=== PATIENT | female | born 1955 | race Two or more races ===

== ENCOUNTER → 2017-06-01 | Outpatient (CLI) | payer BC ==
--- NOTE | 2017-06-01 09:42 | WOMENS IMAGING REPORT ---
EXAM DESCRIPTION: U/S ABDOMEN LIMITED COMPLETED DATE/TIME: 06/01/2017 8:33 am REASON FOR STUDY: R10.13 R10.13 EPIGASTRIC PAIN COMPARISON: None. TECHNIQUE: Dynamic and static grayscale images acquired of the abdomen and recorded on PACS. Additio nal selected color Doppler and spectral images recorded. LIMITATIONS: None. FINDINGS: PANCREAS: No masses. Visualized pancreatic duct normal caliber. LIVER: No focal masses. Fatty infiltration. LIVER VASCULATURE: Normal directional flow of the main portal vein and hepatic veins. GALLBLADDER: Gallstone. No gallbladder wall thickening. ULTRASOUND-DETECTED ANDRE'S SIGN: Negative. INTRAHEPATIC DUCTS AND COMMON DUCT: CBD and intrahepatic ducts normal caliber. No filling defects. INFERIOR VENA CAVA: Normal flow. AORTA: No aneurysm. RIGHT KIDNEY: Normal size. Normal echogenicity. No solid or suspicious masses. No hydronephrosis. No calcifications. PERITONEAL AND RIGHT PLEURAL SPACE: No ascites or effusions. OTHER: No other significant findings. IMPRESSION: Fatty liver. Gallstones. TECHNICAL DOCUMENTATION: JOB ID: [id number] [employer]- All Rights Reserved
== END ==
LOC: WI 07:42
PROVIDERS: ATTEND Internal Medicine Gastroenterology
DX: R10.13 Epigastric pain (principal); K76.0 Fatty (change of) liver, not elsewhere classified
CPT/HCPCS: 76705

== ENCOUNTER 2017-06-08 14:06 | Inpatient (IN) | payer BC ==
[2017-06-08] MEDS ORDERED: NORMAL SALINE 1000 ML 1,000 ML IV PRN ×2 (15:04→16:40)
[2017-06-08] MEDS ORDERED: ONDANSETRON HCL INJ/PF 4 MG/2 ML SDV IV PRN (15:04)
[2017-06-08] MEDS ORDERED: ACETAMINOPHEN 325 MG TABLET PO PRN (15:04)
[2017-06-08] MEDS ORDERED: DEXTROSE 40% GEL 15 GM TUBE PO PRN ×2 (15:08)
[2017-06-08] MEDS ORDERED: GLUCAGON,HUMAN RECOMB 1 MG INJ IM PRN (15:08)
[2017-06-08] MEDS ORDERED: DEXTROSE 50%-WATER 25 GM/50 ML DISP.SYRIN IV PRN ×2 (15:08)
[2017-06-08 15:45] LABS: ABSOLUTE LYMPHOCYTES (AUTO) 0.9 10^3/uL (0.5-4.7); ABSOLUTE MONOCYTES (AUTO) 0.8 10^3/uL (0.1-1.4); ABSOLUTE NEUT (AUTO) 13.5 10^3/uL (1.7-8.2); BASOPHILS % (AUTO) 0.2 % (0-2); HEMATOCRIT 34.7 % (36.0-47.0); HEMOGLOBIN 11.7 g/dL (12.0-15.5); HGB HCT DIFFERENCE 0.4; LYMPHOCYTES % (AUTO) 6.2 % (13-45); MEAN CORPUSCULAR HEMOGLOBIN 29.8 pg (27.0-33.4); MEAN CORPUSCULAR HGB CONC 33.8 g/dL (32.0-36.0); MEAN CORPUSCULAR VOLUME 88 fl (80-97); RED BLOOD COUNT 3.93 10^6/uL (3.72-5.28); RED CELL DISTRIBUTION WIDTH 12.7 % (11.5-14.0); SEGMENTED NEUTROPHILS % (AUTO) 88.6 % (42-78); WHITE BLOOD COUNT 15.3 10^3/uL (4.0-10.5)
[2017-06-08 15:51] LABS: PROTHROMBIN TIME 13.5 SEC (11.4-15.4)
[2017-06-08 16:04] LABS: ALANINE AMINOTRANSFERASE 24 U/L (9-52); ALBUMIN 4.7 g/dL (3.5-5.0); ALKALINE PHOSPHATASE 117 U/L (38-126); ANION GAP 17 (5-19); ASPARTATE AMINO TRANSFERASE 19 U/L (14-36); BILIRUBIN,DIRECT 0.2 mg/dL (0.0-0.4); BILIRUBIN,TOTAL 0.8 mg/dL (0.2-1.3); BLOOD UREA NITROGEN 19 mg/dL (7-20); CALCIUM 9.2 mg/dL (8.4-10.2); CARBON DIOXIDE 26 mmol/L (22-30); CHLORIDE 91 mmol/L (98-107); GLUCOSE 286 mg/dL (75-110); POTASSIUM 4.5 mmol/L (3.6-5.0); SODIUM 133.6 mmol/L (137-145); TOTAL PROTEIN 8.3 g/dL (6.3-8.2)
[2017-06-08 16:13] LABS: MAGNESIUM 1.1 mg/dL (1.6-2.3)
--- NOTE | 2017-06-08 16:15 | RADIOLOGY REPORT (SQ) ---
EXAM DESCRIPTION: CHEST SINGLE VIEW COMPLETED DATE/TIME: 06/08/2017 4:03 pm REASON FOR STUDY: pre op COMPARISON: 01/28/2016 EXAM PARAMETERS: NUMBER OF VIEWS: One view. TECHNIQUE: Single frontal radiographic view of the chest acquired. RADIATION DOSE: NA LIMITATIONS: None. FINDINGS: LUNGS AND PLEURA: No opacities, masses or pneumothorax. No pleural effusion. MEDIASTINUM AND HILAR STRUCTURES: No masses. Contour normal. HEART AND VASCULAR STRUCTURES: Heart normal in size. Normal vasculature. BONES: No acute findings. HARDWARE: Sternotomy wires. OTHER: No other significant finding. IMPRESSION: NO ACUTE RADIOGRAPHIC FINDING IN THE CHEST. TECHNICAL DOCUMENTATION: JOB ID: [id number]
--- NOTE | 2017-06-08 16:52 | PDOC H&P ---
History of Present Illness Admission Date/PCP: 06/08/17 14:06 MAURISIO SAINZ MD Patient complains of: Nausea vomiting History of Present Illness: MEGAN ARELLANO is a 62 year old female This is a 62-year-old female with a history of the type 2 diabetes and a history of the hypertension and coronary artery disease came to the office because of the complaint of some nausea vomiting some abdominal discomfort since last night. Patient recently has see her Dr. Elliott and order the ultrasound of the abdomen with so some gallstone but no other acute finding and patient scheduled for the outpatients of the procedures. Patient's intractable nausea and vomiting and discussed with the Dr. Elliott and suggest probably most likely coming from the gallstones and decided to admit in the hospital for further surgical evaluations. Patient's denied any chest pain denied any shortness of the breath. Past Medical History Cardiac Medical History: Reports: Coronary Artery Disease, Myocardial Infarction , Hyperlipidema, Hypertension Pulmonary Medical History: Denies: Asthma Neurological Medical History: Denies: Seizures Endocrine Medical History: Reports: Diabetes Mellitus Type 2 GI Medical History: Reports: Gastroesophageal Reflux Disease Denies: Hepatitis, Hiatal Hernia Musculoskeltal Medical History: Reports: Arthritis Hematology: Denies: Anemia, Sickle Cell Disease Past Surgical History Past Surgical History: Reports: Coronary Artery Bypass Graft Denies: Amputation, Mastectomy, Pacemaker Social History Information Source: Patient Lives with: Family Smoking Status: Never Smoker Frequency of Alcohol Use: None Hx Recreational Drug Use: No Hx Prescription Drug Abuse: No Family History Family History: Reviewed & Not Pertinent Parental Family History Reviewed: Yes Children Family History Reviewed: Yes Sibling(s) Family History Reviewed.: Yes Medication/Allergy Home Medications: Aspirin [Ecotrin] 325 mg PO DAILY 06/08/17 Atenolol [Tenormin] 25 mg PO DAILY 06/08/17 Calcium Carbonate/Vitamin D3 [Caltrate 600 Plus D3 Tablet] 1 tab PO BID Cyanocobalamin (Vitamin B-12) [Vitamin B12] 2,500 mcg PO DAILY 06/08/17 Gluc Ca/Chondro Ca A/Vit C/Mn [Glucosamine 1,500 Complex Cap] 2 cap PO DAILY Insulin Glargine,Hum.rec.anlog [Lantus Solostar] 16 units SQ QPM 06/08/17 Insulin Lispro [Humalog Kwikpen U-100] 0 units SQ .PERSLIDINGSCALE 06/08/17 Lisinopril [Zestril] 10 mg PO DAILY 06/08/17 Metformin HCl [Glucophage XR 500 mg Tablet] 1,000 mg PO BID 06/08/17 Rosuvastatin Calcium [Crestor 5 mg Tablet] 5 mg PO DAILY 06/08/17 Vitamin B Complex [Super B Complex] 1 cap PO DAILY 06/08/17 Allergies/Adverse Reactions: codeine [Codeine] Adverse Reaction (Unknown, Verified 10/30/15 15:06) Nausea Review of Systems Constitutional: ABSENT: chills, fever(s), headache(s), weight gain, weight loss Eyes: ABSENT: visual disturbances Ears: ABSENT: hearing changes Cardiovascular: ABSENT: chest pain, dyspnea on exertion, edema, orthropnea, palpitations Respiratory: ABSENT: cough, hemoptysis Gastrointestinal: PRESENT: abdominal pain, bloating, nausea, vomiting Genitourinary: ABSENT: dysuria, hematuria Musculoskeletal: ABSENT: joint swelling Integumentary: ABSENT: rash, wounds Neurological: ABSENT: abnormal gait, abnormal speech, confusion, dizziness, focal weakness, syncope Psychiatric: ABSENT: anxiety, depression, homidical ideation, suicidal ideation Endocrine: ABSENT: cold intolerance, heat intolerance, menstrual abnormalities, polydipsia, polyuria Hematologic/Lymphatic: ABSENT: easy bleeding, easy bruising, lymphadenopathy Physical Exam Vital Signs: Temp Pulse Resp BP Pulse Ox 99.0 F 84 16 140/56 H 100 06/08/17 14:29 06/08/17 14:29 06/08/17 14:29 06/08/17 14:29 06/08/17 14:29 Intake & Output 06/07/17 06/08/17 06/09/17 06:59 06:59 06:59 Weight 74.9 kg General appearance: PRESENT: no acute distress, well-developed, well-nourished Head exam: PRESENT: atraumatic, normocephalic Eye exam: PRESENT: conjunctiva pink, EOMI, PERRLA. ABSENT: scleral icterus Ear exam: PRESENT: normal external ear exam Mouth exam: PRESENT: moist, tongue midline Neck exam: PRESENT: full ROM. ABSENT: carotid bruit, JVD, lymphadenopathy, thyromegaly Respiratory exam: PRESENT: clear to auscultation jose Cardiovascular exam: PRESENT: RRR. ABSENT: diastolic murmur, rubs, systolic murmur Pulses: PRESENT: normal dorsalis pedis pul, +2 pedal pulses bilateral Vascular exam: PRESENT: normal capillary refill GI/Abdominal exam: PRESENT: normal bowel sounds, soft, tenderness. ABSENT: distended, guarding, mass, organolmegaly, rebound Rectal exam: PRESENT: deferred Neurological exam: PRESENT: alert, awake, oriented to person, oriented to place , oriented to time, oriented to situation, CN II-XII grossly intact. ABSENT: motor sensory deficit Psychiatric exam: PRESENT: appropriate affect, normal mood. ABSENT: homicidal ideation, suicidal ideation Skin exam: PRESENT: dry, intact, warm. ABSENT: cyanosis, rash Assessment & Plan - Diagnosis (1) Nausea & vomiting Qualifiers: Vomiting Intractability: intractable Is this a current diagnosis for this admission?: YesPlan: Possible underlying gallstone versus gastritis will admit the patient in the hospital IV fluid (2) Abdominal pain Qualifiers: Abdominal location: generalized Qualified Code(s): R10.84 - Generalized abdominal pain Is this a current diagnosis for this admission?: YesPlan: We consulted general surgery for further evaluation about the gallstones (3) Gallstone Qualifiers: Cholecystitis presence: without cholecystitis Is this a current diagnosis for this admission?: YesPlan: Consult the general surgery (4) Hypertension Qualifiers: Hypertension type: essential hypertension Qualified Code(s): I10 - Essential (primary) hypertension Is this a current diagnosis for this admission?: YesPlan: Currently all stable (5) Hyperlipidemia Qualifiers: Hyperlipidemia type: unspecified Qualified Code(s): E78.5 - Hyperlipidemia, unspecified Is this a current diagnosis for this admission?: Yes (6) Type 2 diabetes mellitus Qualifiers: Diabetes mellitus complication status: with unspecified complications Is this a current diagnosis for this admission?: YesPlan: Continues to sliding scale and current medications (7) Coronary artery disease Qualifiers: Coronary Disease-Associated Artery/Lesion type: unspecified vessel or lesion type Is this a current diagnosis for this admission?: YesPlan: We will get the EKG and consult the cardiology for further evaluations for the cardiac clearance before the surgery - Time Time Spent: 30 to 50 Minutes Medications reviewed and adjusted accordingly: Yes Anticipated discharge: Home Within: Other - Inpatient Certification Medical Necessity: Need For IV Fluids, Need for Surgery Post Hospital Care: D/C [facility] Documentation - Plan Summary Plan Summary: Admit the patient in IMCU discussed with the patient and the family about the patient's current conditions and discussed with the coordinate care with the general surgery start iv rocephine and asper d/w surgery s/o ct abd/pelvis
[2017-06-08] MEDS ORDERED: CEFTRIAXONE 1 GM/D5W RTU 1 GM/50 ML RTUPB IV SCH (17:00)
[2017-06-08] MEDS ORDERED: ENOXAPARIN SODIUM INJ 40 MG/0.4 ML DISP.SYRIN SUBCUT ONE (17:00)
[2017-06-08] MEDS: CALCIUM CARBONATE 250 MG/VITAMIN D3 125 UNIT TABLET PO SCH (17:18)
[2017-06-08] MEDS: INSULIN LISPRO 100 UNIT/ML 3 ML VIAL SUBCUT PRN ×2 (17:49→22:30)
[2017-06-08] MEDS: MAGNESIUM SULFATE/D5W 100 ML IV SCH ×2 (17:50→21:05)
[2017-06-08] MEDS ORDERED: INSULIN GLARGINE,HUM.REC.ANLOG 300 UNIT/3 ML INSULN.PEN SUBCUT SCH (18:00)
[2017-06-08] MEDS ORDERED: (PENDING PHARMACY ID) (Calcium Carbonate/Vitamin D3 [Caltrate 600 Plus D3 Tablet] 1 TAB) PO SCH (18:00)
--- NOTE | 2017-06-08 19:25 | RADIOLOGY REPORT (SQ) ---
EXAM DESCRIPTION: U/S ABDOMEN COMPLETE W/O DOP COMPLETED DATE/TIME: 06/08/2017 6:53 pm REASON FOR STUDY: abd pain COMPARISON: None. TECHNIQUE: Dynamic and static grayscale images acquired of the abdomen and recorded on PACS. Additio nal selected color Doppler and spectral images recorded. LIMITATIONS: None. FINDINGS: PANCREAS: No masses. Visualized pancreatic duct normal caliber. LIVER: No masses. Echotexture normal. LIVER VASCULATURE: Normal blood flow is identified in portal vein. GALLBLADDER: No gallstones are identified. There is increased echogenicity in the dependent portion of the gallbladder which has the appearance of a combination of biliary sludge and small gallstones. There is some mild thickening of the gallbladder wall. No pericholecystic fluid. ULTRASOUND-DETECTED ANDRE'S SIGN: Negative. INTRAHEPATIC DUCTS AND COMMON DUCT: CBD and intrahepatic ducts normal caliber. No filling defects. INFERIOR VENA CAVA: Normal flow. AORTA: No aneurysm. RIGHT KIDNEY: 10.2 cm in length. Normal echogenicity. No solid or suspicious masses. No hydron ephrosis. No calcifications. LEFT KIDNEY: 10.5 cm in length. Normal echogenicity. No solid or suspicious masses. No hydrone phrosis. No calcifications. SPLEEN: Normal size. No solid masses. PERITONEAL AND PLEURAL SPACES: No ascites or effusions. OTHER: No other significant finding. IMPRESSION: Increased echogenicity in the dependent portion of the gallbladder which has the appeara nce of a combination of biliary sludge and small gallstones. There is some mild thickening of the ga llbladder wall. The possibility of cholecystitis should be considered. Other findings as noted dinorah ma TECHNICAL DOCUMENTATION: JOB ID: [id number] [employer]- All Rights Reserved
--- NOTE | 2017-06-08 20:35 | PDOC CONSULTATION ---
Consultation Consult Date: 06/08/17 History of Present Illness Admission Date/PCP: 06/08/17 14:06 MAURISIO SAINZ MD History of Present Illness: This is a 63-year-old patient who was admitted directly to the hospital today with epigastric and right upper quadrant pain associated with vomiting. Her symptoms started last night about 11 and she vomited multiple times during the night. The pain has also been constant though it is better currently. She has not vomited for more than 10 hours. She did have a few episodes of loose stools during the night but none today so far. She denies fever. On admission her white count was elevated at 15 and her ultrasound showed mild gallbladder wall thickening with gallstones and sludge in the dependent part of the gallbladder. There was no pericholecystic fluid. She had another ultrasound on 06/01/2017 that showed a gallstone. I saw her in the office about a week ago with dyspeptic symptoms and she was supposed to have an EGD in a few days. She is also due for colon cancer screening Past Medical History Cardiac Medical History: Reports: Coronary Artery Disease, Myocardial Infarction , Hyperlipidema, Hypertension Pulmonary Medical History: Denies: Asthma Neurological Medical History: Denies: Seizures Endocrine Medical History: Reports: Diabetes Mellitus Type 2 GI Medical History: Reports: Gastroesophageal Reflux Disease Denies: Hepatitis, Hiatal Hernia Musculoskeltal Medical History: Reports: Arthritis Hematology: Denies: Anemia, Sickle Cell Disease Past Surgical History Past Surgical History: Reports: Coronary Artery Bypass Graft Denies: Amputation, Mastectomy, Pacemaker Social History Lives with: Family Smoking Status: Never Smoker Frequency of Alcohol Use: None Hx Recreational Drug Use: No Hx Prescription Drug Abuse: No Family History Family History: Reviewed & Not Pertinent Parental Family History Reviewed: No Children Family History Reviewed: NA Sibling(s) Family History Reviewed.: NA Medication/Allergy Home Medications: Aspirin [Ecotrin] 325 mg PO DAILY 06/08/17 Atenolol [Tenormin] 25 mg PO DAILY 06/08/17 Calcium Carbonate/Vitamin D3 [Caltrate 600 Plus D3 Tablet] 1 tab PO BID Cyanocobalamin (Vitamin B-12) [Vitamin B12] 2,500 mcg PO DAILY 06/08/17 Gluc Ca/Chondro Ca A/Vit C/Mn [Glucosamine 1,500 Complex Cap] 2 cap PO DAILY Insulin Glargine,Hum.rec.anlog [Lantus Solostar] 16 units SQ QPM 06/08/17 Insulin Lispro [Humalog Kwikpen U-100] 0 units SQ .PERSLIDINGSCALE 06/08/17 Lisinopril [Zestril] 10 mg PO DAILY 06/08/17 Metformin HCl [Glucophage XR 500 mg Tablet] 1,000 mg PO BID 06/08/17 Rosuvastatin Calcium [Crestor 5 mg Tablet] 5 mg PO DAILY 06/08/17 Vitamin B Complex [Super B Complex] 1 cap PO DAILY 06/08/17 Allergies/Adverse Reactions: codeine [Codeine] Adverse Reaction (Unknown, Verified 10/30/15 15:06) Nausea Review of Systems All systems: reviewed and no additional remarkable complaints except as stated Physical Exam Vital Signs: Temp Pulse Resp BP Pulse Ox 100.0 F 84 16 129/46 H 99 06/08/17 19:20 06/08/17 19:20 06/08/17 19:20 06/08/17 19:20 06/08/17 19:20 Intake & Output 06/07/17 06/08/17 06/09/17 06:59 06:59 06:59 Weight 74.9 kg Exam: General: Patient is alert and looks well. HEENT: There is no pallor or jaundice. PERRLA. Oropharynx normal Respiratory: No chest deformity. No respiratory distress. Chest wall palpitation was unremarkable. Breath sounds were normal Cardiovascular: Heart sounds 1 and 2 normal with no murmurs. Abdominal: Not distended. There is tenderness in the right upper quadrant. Liver and spleen not palpable. No ascites demonstrated. Bowel sounds active. Rectal examination was deferred. Extremities: No edema Neurological: Alert and oriented x4. Grossly nonfocal. Normal speech Skin: No significant rash Psychological: Normal affect Results Laboratory Results: 06/08/17 15:26 06/08/17 15:26 06/08/17 06/08/17 15:26 15:26 WBC 15.3 H RBC 3.93 Hgb 11.7 L Hct 34.7 L MCV 88 MCH 29.8 MCHC 33.8 RDW 12.7 Plt Count 272 Seg Neutrophils % 88.6 H Lymphocytes % 6.2 L Monocytes % 5.0 Eosinophils % 0.0 Basophils % 0.2 Absolute Neutrophils 13.5 H Absolute Lymphocytes 0.9 Absolute Monocytes 0.8 Absolute Eosinophils 0.0 Absolute Basophils 0.0 Sodium 133.6 L Potassium 4.5 Chloride 91 L Carbon Dioxide 26 Anion Gap 17 BUN 19 Creatinine 0.60 Est GFR ( Amer) > 60 Est GFR (Non-Af Amer) > 60 Glucose 286 H Calcium 9.2 Magnesium 1.1 L* Total Bilirubin 0.8 AST 19 ALT 24 Alkaline Phosphatase 117 Total Protein 8.3 H Albumin 4.7 Lipase 20.0 L Impressions: Abdomen Ultrasound 06/08/17 00:00 IMPRESSION: Increased echogenicity in the dependent portion of the gallbladder which has the appearance of a combination of biliary sludge and small gallstones. There is some mild thickening of the gallbladder wall. The possibility of cholecystitis should be considered. Other findings as noted above Chest X-Ray 06/08/17 15:06 IMPRESSION: NO ACUTE RADIOGRAPHIC FINDING IN THE CHEST. Assessment & Plan - Diagnosis (1) Right upper quadrant pain Is this a current diagnosis for this admission?: YesPlan: She developed an acute onset right upper quadrant pain with vomiting and her ultrasound showed mild gallbladder wall thickening. I suspect this is cholecystitis but I did schedule her for an HIDA scan. She will be evaluated by the surgeon. She is on antibiotics (2) Abnormal abdominal ultrasound Is this a current diagnosis for this admission?: Yes (3) Gallstone Qualifiers: Cholecystitis presence: without cholecystitis Is this a current diagnosis for this admission?: Yes (4) Nausea & vomiting Qualifiers: Vomiting Intractability: intractable Is this a current diagnosis for this admission?: Yes
[2017-06-08] MEDS ORDERED: MAGNESIUM SULFATE/D5W 1 GM/100 ML RTUPB IV ONE (21:00)
[2017-06-08] MEDS: PANTOPRAZOLE SODIUM 40 MG VIAL IV SCH (22:30)
[2017-06-08] MEDS: ATORVASTATIN CALCIUM 10 MG TABLET PO SCH (22:30)
[2017-06-09 06:40] LABS: ABSOLUTE BASOPHILS # (AUTO) 0.1 10^3/uL (0.0-0.2); ABSOLUTE LYMPHOCYTES (AUTO) 1.2 10^3/uL (0.5-4.7); ABSOLUTE MONOCYTES (AUTO) 0.8 10^3/uL (0.1-1.4); ABSOLUTE NEUT (AUTO) 13.9 10^3/uL (1.7-8.2); BASOPHILS % (AUTO) 0.3 % (0-2); HEMATOCRIT 31.6 % (36.0-47.0); HEMOGLOBIN 10.8 g/dL (12.0-15.5); HGB HCT DIFFERENCE 0.8; LYMPHOCYTES % (AUTO) 7.4 % (13-45); MEAN CORPUSCULAR HEMOGLOBIN 30.4 pg (27.0-33.4); MEAN CORPUSCULAR HGB CONC 34.1 g/dL (32.0-36.0); MEAN CORPUSCULAR VOLUME 89 fl (80-97); MONOCYTES % (AUTO) 5.3 % (3-13); RED BLOOD COUNT 3.53 10^6/uL (3.72-5.28)
[2017-06-09 07:04] LABS: ALANINE AMINOTRANSFERASE 24 U/L (9-52); ALBUMIN 3.7 g/dL (3.5-5.0); ALKALINE PHOSPHATASE 100 U/L (38-126); ANION GAP 13 (5-19); ASPARTATE AMINO TRANSFERASE 14 U/L (14-36); BILIRUBIN,DIRECT 0.4 mg/dL (0.0-0.4); BILIRUBIN,TOTAL 0.8 mg/dL (0.2-1.3); BLOOD UREA NITROGEN 14 mg/dL (7-20); CALCIUM 8.3 mg/dL (8.4-10.2); CARBON DIOXIDE 24 mmol/L (22-30); CHLORIDE 97 mmol/L (98-107); CREATININE RESULT 0.58 mg/dL (0.52-1.25); GLUCOSE 248 mg/dL (75-110); MAGNESIUM 1.7 mg/dL (1.6-2.3); POTASSIUM 4.2 mmol/L (3.6-5.0); SODIUM 134.2 mmol/L (137-145); TOTAL PROTEIN 6.6 g/dL (6.3-8.2)
--- NOTE | 2017-06-09 07:33 | PDOC CONSULTATION ---
Consultation Consult Date: 06/09/17 Attending physician:: FRANDY HANNA Consult reason:: Gallbladder disease History of Present Illness Admission Date/PCP: 06/08/17 14:06 MAURISIO HANNA MD History of Present Illness: This is a 63-year-old patient who was admitted directly to the hospital today with epigastric and right upper quadrant pain associated with vomiting. Her symptoms started last night about 11 and she vomited multiple times during the night. The pain has also been constant though it is better currently. She has not vomited for more than 10 hours. She did have a few episodes of loose stools during the night but none today so far. She denies fever. On admission her white count was elevated at 15 and her ultrasound showed mild gallbladder wall thickening with gallstones and sludge in the dependent part of the gallbladder. There was no pericholecystic fluid. She had another ultrasound on 06/01/2017 that showed a gallstone. I saw her in the office about a week ago with dyspeptic symptoms and she was supposed to have an EGD in a few days. She is also due for colon cancer screening Surgeon's addendum: Dr. Menjivar received phone call from Dr. Pink 2 days ago reporting his 's symptoms as described above. Original plans were for the patient to come in to my office later this week, however she was evaluated by Dr. Hanna yesterday and felt to require urgent hospitalization. Since that time the patient's repetitive episodes of vomiting have diminished. She was admitted to the hospital overnight, found to have right upper quadrant tenderness, leukocytosis. Originally CT scan was ordered but that was canceled. A HIDA scan was ordered for today. Patient's last bowel movement was yesterday, normal. According to the patient for the last several months she has been having postprandial right upper quadrant pain occasionally radiating to her back with some nausea but no vomiting. She describes the pain is mild. However the last week the postprandial symptoms have intensified. Gallbladder ultrasound yesterday showed gallstones and sludge. Past Medical History Cardiac Medical History: Reports: Coronary Artery Disease, Myocardial Infarction , Hyperlipidema, Hypertension Pulmonary Medical History: Denies: Asthma Neurological Medical History: Denies: Seizures Endocrine Medical History: Reports: Diabetes Mellitus Type 2 GI Medical History: Reports: Gastroesophageal Reflux Disease Denies: Hepatitis, Hiatal Hernia Musculoskeltal Medical History: Reports: Arthritis Hematology: Denies: Anemia, Sickle Cell Disease Past Surgical History Past Surgical History: Reports: Coronary Artery Bypass Graft Denies: Amputation, Mastectomy, Pacemaker Social History Lives with: Family Smoking Status: Never Smoker Frequency of Alcohol Use: None Hx Recreational Drug Use: No Hx Prescription Drug Abuse: No Family History Family History: Reviewed & Not Pertinent Parental Family History Reviewed: Yes Children Family History Reviewed: Yes Sibling(s) Family History Reviewed.: Yes Medication/Allergy Home Medications: Aspirin [Ecotrin] 325 mg PO DAILY 06/08/17 Atenolol [Tenormin] 25 mg PO DAILY 06/08/17 Calcium Carbonate/Vitamin D3 [Caltrate 600 Plus D3 Tablet] 1 tab PO BID Cyanocobalamin (Vitamin B-12) [Vitamin B12] 2,500 mcg PO DAILY 06/08/17 Gluc Ca/Chondro Ca A/Vit C/Mn [Glucosamine 1,500 Complex Cap] 2 cap PO DAILY Insulin Glargine,Hum.rec.anlog [Lantus Solostar] 16 units SQ QPM 06/08/17 Insulin Lispro [Humalog Kwikpen U-100] 0 units SQ .PERSLIDINGSCALE 06/08/17 Lisinopril [Zestril] 10 mg PO DAILY 06/08/17 Metformin HCl [Glucophage XR 500 mg Tablet] 1,000 mg PO BID 06/08/17 Rosuvastatin Calcium [Crestor 5 mg Tablet] 5 mg PO DAILY 06/08/17 Vitamin B Complex [Super B Complex] 1 cap PO DAILY 06/08/17 Allergies/Adverse Reactions: codeine [Codeine] Adverse Reaction (Unknown, Verified 10/30/15 15:06) Nausea Review of Systems Constitutional: PRESENT: other - Patient denies recent weight loss Eyes: ABSENT: visual disturbances Ears: ABSENT: hearing changes Cardiovascular: ABSENT: chest pain, dyspnea on exertion, edema, orthropnea, palpitations Respiratory: ABSENT: cough, hemoptysis Gastrointestinal: PRESENT: as per HPI Genitourinary: ABSENT: dysuria, hematuria Neurological: ABSENT: abnormal gait, abnormal speech, confusion, dizziness, focal weakness, syncope Endocrine: ABSENT: cold intolerance, heat intolerance, polydipsia, polyuria Physical Exam Vital Signs: Temp Pulse Resp BP Pulse Ox 100.4 F 94 16 116/55 L 96 06/09/17 04:31 06/09/17 04:31 06/09/17 04:31 06/09/17 04:31 06/09/17 04:31 Intake & Output 06/08/17 06/09/17 06/10/17 06:59 06:59 06:59 Intake Total 1250 Output Total 425 Balance 825 Weight 74.9 kg General appearance: PRESENT: no acute distress Head exam: PRESENT: normocephalic Eye exam: PRESENT: EOMI Mouth exam: PRESENT: dry mucosa Neck exam: PRESENT: full ROM Respiratory exam: PRESENT: other - . No wheezing. Cardiovascular exam: PRESENT: other - Patient has a well-healed median sternotomy incision. Without murmur or gallop GI/Abdominal exam: PRESENT: other - tender right upper quadrant with guarding. Rectal exam: PRESENT: deferred Neurological exam: PRESENT: altered, awake, oriented to person, oriented to place Psychiatric exam: PRESENT: appropriate affect Results Laboratory Results: 06/09/17 05:39 06/09/17 05:39 06/08/17 06/08/17 06/09/17 15:26 15:26 05:39 WBC 15.3 H 16.0 H RBC 3.93 3.53 L Hgb 11.7 L 10.8 L Hct 34.7 L 31.6 L MCV 88 89 MCH 29.8 30.4 MCHC 33.8 34.1 RDW 12.7 13.0 Plt Count 272 249 Seg Neutrophils % 88.6 H 87.0 H Lymphocytes % 6.2 L 7.4 L Monocytes % 5.0 5.3 Eosinophils % 0.0 0.0 Basophils % 0.2 0.3 Absolute Neutrophils 13.5 H 13.9 H Absolute Lymphocytes 0.9 1.2 Absolute Monocytes 0.8 0.8 Absolute Eosinophils 0.0 0.0 Absolute Basophils 0.0 0.1 Sodium 133.6 L Potassium 4.5 Chloride 91 L Carbon Dioxide 26 Anion Gap 17 BUN 19 Creatinine 0.60 Est GFR ( Amer) > 60 Est GFR (Non-Af Amer) > 60 Glucose 286 H Calcium 9.2 Magnesium 1.1 L* Total Bilirubin 0.8 AST 19 ALT 24 Alkaline Phosphatase 117 Total Protein 8.3 H Albumin 4.7 Lipase 20.0 L 06/09/17 05:39 WBC RBC Hgb Hct MCV MCH MCHC RDW Plt Count Seg Neutrophils % Lymphocytes % Monocytes % Eosinophils % Basophils % Absolute Neutrophils Absolute Lymphocytes Absolute Monocytes Absolute Eosinophils Absolute Basophils Sodium 134.2 L Potassium 4.2 Chloride 97 L Carbon Dioxide 24 Anion Gap 13 BUN 14 Creatinine 0.58 Est GFR ( Amer) > 60 Est GFR (Non-Af Amer) > 60 Glucose 248 H Calcium 8.3 L Magnesium 1.7 Total Bilirubin 0.8 AST 14 ALT 24 Alkaline Phosphatase 100 Total Protein 6.6 Albumin 3.7 Lipase Impressions: Abdomen Ultrasound 06/08/17 00:00 IMPRESSION: Increased echogenicity in the dependent portion of the gallbladder which has the appearance of a combination of biliary sludge and small gallstones. There is some mild thickening of the gallbladder wall. The possibility of cholecystitis should be considered. Other findings as noted above Chest X-Ray 06/08/17 15:06 IMPRESSION: NO ACUTE RADIOGRAPHIC FINDING IN THE CHEST. Assessment & Plan - Diagnosis (1) Cholecystitis, acute with cholelithiasis Is this a current diagnosis for this admission?: YesPlan: Assessment: Patient was admitted for acute cholecystitis. Patient's clinical history, physical exam findings radiographic and serologic studies are consistent with the diagnosis. Plan: 1. Agree with keeping the patient n.p.o. on IV fluids and intravenous antibiotics. 2. We will place patient on the add-on list for later today for laparoscopic, possible open cholecystectomy. I will discuss the risks benefits and alternatives to the planned procedure to the patient greater detail later today. 3. I discussed the above with Dr. Hanna, attending physician. - Time Time Spent: 30 to 50 Minutes Critical Time spent with patient: Less than 15 minutes
[2017-06-09] MEDS ORDERED: NEOSTIGMINE METHYLSULFATE 10 MG/10 ML VIAL ONE (07:39)
[2017-06-09] MEDS ORDERED: METOCLOPRAMIDE HCL INJ/PF 10 MG/2 ML SDV ONE (07:39)
[2017-06-09] MEDS ORDERED: PHENYLEPHRINE HCL INJ/PF 10 MG/1 ML SDV ONE (07:39)
[2017-06-09] MEDS ORDERED: VECURONIUM BROMIDE INJ 10 MG VIAL IV ONE (07:39)
[2017-06-09] MEDS ORDERED: SUCCINYLCHOLINE CHLORIDE INJ 200 MG/10 ML VIAL ONE (07:39)
[2017-06-09] MEDS ORDERED: GLYCOPYRROLATE INJ 0.4 MG/2 ML VIAL ONE (07:39)
[2017-06-09] MEDS ORDERED: NORMAL SALINE 1000 ML 1,000 ML IV PRN (08:00)
[2017-06-09] MEDS: CEFEPIME HCL 1 GM in DEXTROSE 5%-WATER 50 ML IV SCH ×2 (09:40→22:58)
[2017-06-09] MEDS: INSULIN LISPRO 100 UNIT/ML 3 ML VIAL SUBCUT PRN ×2 (09:42→23:58)
[2017-06-09] MEDS: ATENOLOL 50 MG TABLET PO SCH (09:43)
[2017-06-09] MEDS: PANTOPRAZOLE SODIUM 40 MG VIAL IV SCH ×2 (09:45→22:59)
[2017-06-09] MEDS: CALCIUM CARBONATE 250 MG/VITAMIN D3 125 UNIT TABLET PO SCH ×2 (09:56→17:01)
[2017-06-09] MEDS ORDERED: LISINOPRIL 10 MG TABLET PO SCH (10:00)
[2017-06-09] MEDS ORDERED: (PENDING PHARMACY ID) (Rosuvastatin Calcium [Crestor 5 Mg Tablet] 5 MG) PO SCH (10:00)
[2017-06-09] MEDS ORDERED: PANTOPRAZOLE SODIUM 40 MG VIAL IV SCH (10:00)
[2017-06-09] MEDS ORDERED: CEFEPIME 1 GM/D5W RTU 1 GM/50 ML RTUPB IV SCH (10:00)
[2017-06-09] MEDS ORDERED: (PENDING PHARMACY ID) (Atenolol [Tenormin] 25 MG) PO SCH (10:00)
[2017-06-09] MEDS ORDERED: ENOXAPARIN SODIUM INJ 40 MG/0.4 ML DISP.SYRIN SUBCUT SCH (10:00)
--- NOTE | 2017-06-09 10:45 | PDOC CONSULTATION ---
Consultation Consult Date: 06/09/17 Attending physician:: MAURISIO SAINZ Consult reason:: Preop cardiovascular evaluation, known CAD History of Present Illness Admission Date/PCP: 06/08/17 14:06 MAURISIO SAINZ MD Patient complains of: Abdominal pain, nausea and vomiting History of Present Illness: This is a 63-year-old patient who was admitted directly to the hospital today with epigastric and right upper quadrant pain associated with vomiting. Her symptoms started night before last night about 11 and she vomited multiple times during the night. The pain has also been constant though it is better currently. She has not vomited anymore since admission but feels nauseous and describes lack of appetite. She did have a few episodes of loose stools during the night before. She denies fever. On admission her white count was elevated at 15 and her ultrasound showed mild gallbladder wall thickening with gallstones and sludge in the dependent part of the gallbladder. There was no pericholecystic fluid. She had another ultrasound on 06/01/2017 that showed a gallstone. I saw her in the office about a week ago with dyspeptic symptoms and she was supposed to have an EGD in a few days. She is also due for colon cancer screening. Patient has known history of coronary artery disease having had two- vessel coronary artery bypass graft surgery in 2008 at [facility]. Since then patient has remained stable from cardiac standpoint without any chest pain, shortness of breath, sustained palpitations, syncope or near syncope. Patient is fairly active and denied symptoms of shortness of breath. This history was reviewed supplemented and confirmed. Past Medical History Cardiac Medical History: Reports: Coronary Artery Disease, Myocardial Infarction , Hyperlipidema, Hypertension Pulmonary Medical History: Denies: Asthma Neurological Medical History: Denies: Seizures Endocrine Medical History: Reports: Diabetes Mellitus Type 2 GI Medical History: Reports: Gastroesophageal Reflux Disease Denies: Hepatitis, Hiatal Hernia Musculoskeltal Medical History: Reports: Arthritis Hematology: Denies: Anemia, Sickle Cell Disease Past Surgical History Past Surgical History: Reports: Coronary Artery Bypass Graft - 2 vessel bypass in 2008 at [facility] Denies: Amputation, Mastectomy, Pacemaker Social History Information Source: Patient Lives with: Family Smoking Status: Never Smoker Frequency of Alcohol Use: None Hx Recreational Drug Use: No Hx Prescription Drug Abuse: No - Advance Directive Resuscitation Status: Full Code Surrogate healthcare decision maker:: Patient's Dr. Pink the surrogate decision maker Family History Family History: CAD Parental Family History Reviewed: Yes Children Family History Reviewed: Yes Sibling(s) Family History Reviewed.: Yes Medication/Allergy Home Medications: Aspirin [Ecotrin] 325 mg PO DAILY 06/08/17 Atenolol [Tenormin] 25 mg PO DAILY 06/08/17 Calcium Carbonate/Vitamin D3 [Caltrate 600 Plus D3 Tablet] 1 tab PO BID Cyanocobalamin (Vitamin B-12) [Vitamin B12] 2,500 mcg PO DAILY 06/08/17 Gluc Ca/Chondro Ca A/Vit C/Mn [Glucosamine 1,500 Complex Cap] 2 cap PO DAILY Insulin Glargine,Hum.rec.anlog [Lantus Solostar] 16 units SQ QPM 06/08/17 Insulin Lispro [Humalog Kwikpen U-100] 0 units SQ .PERSLIDINGSCALE 06/08/17 Lisinopril [Zestril] 10 mg PO DAILY 06/08/17 Metformin HCl [Glucophage XR 500 mg Tablet] 1,000 mg PO BID 06/08/17 Rosuvastatin Calcium [Crestor 5 mg Tablet] 5 mg PO DAILY 06/08/17 Vitamin B Complex [Super B Complex] 1 cap PO DAILY 06/08/17 Allergies/Adverse Reactions: codeine [Codeine] Adverse Reaction (Unknown, Verified 10/30/15 15:06) Nausea Review of Systems Review of Systems: Please see history of present illness and past medical history as wall. Constitutional: No fever or chills reported. Head : No recent chronic headaches, recent head injury. Eyes: No recent eye pain, diplopia, redness, discharge, acute visual changes. Ears: No recent chronic ear pain, acute hearing loss, ear discharge. Oral cavity: No recent ulcerations, bleeding, oral cavity discomfort. Neck: No recent acute neck pain reported. Hematologic: No recent easy bruising or bleeding or hematologic malignancy reported. Lymphatic: No recent lymphatic malignancy, chronic lymphadenopathy reported yet Cardiovascular system review: See history of present illness. Respiratory system review: No recent chronic cough, hemoptysis, blood clots in the lungs reported. Mild Shortness of breath on exertion Gastrointestinal system review: Nausea vomiting, diarrhea and upper quadrant abdominal pain as noted in HPI but no hematemesis, melena. Genitourinary system review: No recent acute or chronic hematuria, flank pain, UTI etc. reported. Skin system review: Negative for any recent abnormal bruising, no rash, no pruritus reported. Neurologic: No prior history of strokes, mini strokes, seizure disorder. Psychologic: No history of major psychosis or major depression reported. Musculoskeletal: Minor aches and pains reported. No acute joint swelling reported. Endocrine: No recent polyuria, polydipsia, recent heat or cold intolerance. Physical Exam Vital Signs: Temp Pulse Resp BP Pulse Ox 100.4 F 90 16 116/55 L 96 06/09/17 04:31 06/09/17 07:00 06/09/17 04:31 06/09/17 04:31 06/09/17 04:31 Intake & Output 06/08/17 06/09/17 06/10/17 06:59 06:59 06:59 Intake Total 1250 Output Total 425 Balance 825 Weight 74.9 kg Exam: GENERAL: well-nourished and in no acute distress. Alert and oriented x3 HEAD: Atraumatic, normocephalic. EYES: Pupils equal round and reactive to light, extraocular movements intact, sclera anicteric, conjunctiva are normal. ENT: TMs normal, nares patent, oropharynx clear without exudates. Moist mucous membranes. No oral ulcerations or bleeding gums noted NECK: supple without lymphadenopathy. Trachea is central. No cervical or axillary lymphadenopathy noted. Carotids are 2+, JVD WNL LUNGS: Respiration seems nonlabored, no significant accessory muscle action noted. Breath sounds clear to auscultation bilaterally and equal noted. No wheezes rales or rhonchi noted. No significant dullness noted on percussion. CHEST: Palpation of the chest wall shows no significant chest wall tenderness. No other significant abnormalities noted. HEART: [employer], No PSH, 1/6 MACHO aortic area, 1/6 roy systolic murmur mitral area, no rubs, no gallops. ABDOMEN: Soft, appreciated slight right upper quadrant tenderness, normoactive bowel sounds. No guarding, no rebound. No rigidity noted . No masses appreciated. EXTREMITIES: Pedal pulses are 1-2+, no calf tenderness noted. No clubbing or cyanosis.trace to 1+ pedal edema noted NEUROLOGICAL: Focused neurological exam showed no significant neurologic deficit. Normal speech, no focal weakness appreciated. PSYCH: Normal mood, normal affect. Judgment and insight within normal limits. SKIN: No significant ecchymosis, rash, ulcerations or signs of pruritus noted. MUSCULOSKELETAL EXAM: No significant joint swelling noted. Results Laboratory Results: 06/09/17 05:39 06/09/17 05:39 06/08/17 06/08/17 06/09/17 15:26 15:26 05:39 WBC 15.3 H 16.0 H RBC 3.93 3.53 L Hgb 11.7 L 10.8 L Hct 34.7 L 31.6 L MCV 88 89 MCH 29.8 30.4 MCHC 33.8 34.1 RDW 12.7 13.0 Plt Count 272 249 Seg Neutrophils % 88.6 H 87.0 H Lymphocytes % 6.2 L 7.4 L Monocytes % 5.0 5.3 Eosinophils % 0.0 0.0 Basophils % 0.2 0.3 Absolute Neutrophils 13.5 H 13.9 H Absolute Lymphocytes 0.9 1.2 Absolute Monocytes 0.8 0.8 Absolute Eosinophils 0.0 0.0 Absolute Basophils 0.0 0.1 Sodium 133.6 L Potassium 4.5 Chloride 91 L Carbon Dioxide 26 Anion Gap 17 BUN 19 Creatinine 0.60 Est GFR ( Amer) > 60 Est GFR (Non-Af Amer) > 60 Glucose 286 H Calcium 9.2 Magnesium 1.1 L* Total Bilirubin 0.8 AST 19 ALT 24 Alkaline Phosphatase 117 Total Protein 8.3 H Albumin 4.7 Lipase 20.0 L 06/09/17 05:39 WBC RBC Hgb Hct MCV MCH MCHC RDW Plt Count Seg Neutrophils % Lymphocytes % Monocytes % Eosinophils % Basophils % Absolute Neutrophils Absolute Lymphocytes Absolute Monocytes Absolute Eosinophils Absolute Basophils Sodium 134.2 L Potassium 4.2 Chloride 97 L Carbon Dioxide 24 Anion Gap 13 BUN 14 Creatinine 0.58 Est GFR ( Amer) > 60 Est GFR (Non-Af Amer) > 60 Glucose 248 H Calcium 8.3 L Magnesium 1.7 Total Bilirubin 0.8 AST 14 ALT 24 Alkaline Phosphatase 100 Total Protein 6.6 Albumin 3.7 Lipase EKG Comments: EKG 2 reviewed showed sinus rhythm, no acute ST-T wave changes noted. Impressions: Abdomen Ultrasound 06/08/17 00:00 IMPRESSION: Increased echogenicity in the dependent portion of the gallbladder which has the appearance of a combination of biliary sludge and small gallstones. There is some mild thickening of the gallbladder wall. The possibility of cholecystitis should be considered. Other findings as noted above Chest X-Ray 06/08/17 15:06 IMPRESSION: NO ACUTE RADIOGRAPHIC FINDING IN THE CHEST. Assessment & Plan - Diagnosis (1) Preoperative cardiovascular examination Is this a current diagnosis for this admission?: Yes (2) Cholecystitis, acute with cholelithiasis Is this a current diagnosis for this admission?: Yes (3) Coronary artery disease Qualifiers: Coronary Disease-Associated Artery/Lesion type: unspecified vessel or lesion type Is this a current diagnosis for this admission?: Yes (4) Hyperlipidemia Qualifiers: Hyperlipidemia type: unspecified Qualified Code(s): E78.5 - Hyperlipidemia, unspecified Is this a current diagnosis for this admission?: Yes (5) Hypertension Qualifiers: Hypertension type: essential hypertension Qualified Code(s): I10 - Essential (primary) hypertension Is this a current diagnosis for this admission?: Yes (6) Type 2 diabetes mellitus Qualifiers: Diabetes mellitus complication status: with unspecified complications Is this a current diagnosis for this admission?: Yes - Notes Notes: Preop cardiovascular evaluation: Patient has known history of coronary artery bypass graft surgery in 2008 but has been stable without any symptoms indicative of angina or angina equivalent symptom, CHF, significant cardiac dysrhythmia therefore cleared for surgery. Patient has been noted to be also fairly active. Patient has normal EKG. Recommend postop EKG 2. Coronary artery disease: Patient is symptomatically stable. Continue statins, beta-silvano, LAKESHA inhibitor therapy/ARB therapy. Hypertension: Reasonably well controlled. Blood pressure goal in this patient is 135/85 or less. This was discussed with the patient. Currently blood pressure under reasonable control. Better medication for this patient are LAKESHA inhibitor/ARB/beta silvano etc. discussed side effects of uncontrolled hypertension and also severe hypotension. Diabetes: Recommend good control of blood sugar. However should avoid any hypoglycemia. Patient being expertly managed by primary care M.D. Hyperlipidemia: LDL goal is less than 70. Recommend statin therapy at least intermediate or high dose, of high potency status. Periodic lipid panel and liver panel is indicated. Patient to report any significant muscle discomfort or other side effects. Acute cholecystitis with cholelithiasis: Patient for surgery later on today, timing to be decided by the surgeon. - Time Time Spent: 30 to 50 Minutes - CODE STATUS was discussed, patient remains full code. Surrogate decision-maker unchanged. Multiple medical problems were addressed. More than 50% of the time spent coordinating care, discussing management plans with involved caregivers. Management plans discussed with involved personnels. Medical decision making was of moderate to high complexity , patient's has multiple comorbidities. Medications reviewed and adjusted accordingly: Yes
--- NOTE | 2017-06-09 13:04 | PDOC PROGRESS REPORT ---
Subjective Progress Note for:: 06/09/17 Subjective:: Patient is currently doing fair. Patient still have some abdominal discomfort but nausea and vomiting is getting better. But patient still n.p.o. Patient still have a overnight fever and patient's white count is go up As per discussed with Dr. Hair General surgery and suggest the patient's need to surgically remove the gallbladderAnd scheduled today Patient is currently stable with a cardiac standpoint as discussed with the cardiology Patients denied any chest pain denied any shortness of the breath Physical Exam Vital Signs: Temp Pulse Resp BP Pulse Ox 99.8 F 88 16 131/54 H 94 06/09/17 08:38 06/09/17 08:38 06/09/17 04:31 06/09/17 08:38 06/09/17 08:38 Intake & Output 06/08/17 06/09/17 06/10/17 06:59 06:59 06:59 Intake Total 1250 Output Total 425 Balance 825 Weight 74.9 kg General appearance: PRESENT: no acute distress, well-developed, well-nourished Head exam: PRESENT: atraumatic, normocephalic Eye exam: PRESENT: conjunctiva pink, EOMI, PERRLA. ABSENT: scleral icterus Ear exam: PRESENT: normal external ear exam Mouth exam: PRESENT: moist, tongue midline Neck exam: PRESENT: full ROM. ABSENT: carotid bruit, JVD, lymphadenopathy, thyromegaly Respiratory exam: PRESENT: clear to auscultation jose Cardiovascular exam: PRESENT: RRR. ABSENT: diastolic murmur, rubs, systolic murmur Pulses: PRESENT: normal dorsalis pedis pul, +2 pedal pulses bilateral Vascular exam: PRESENT: normal capillary refill GI/Abdominal exam: PRESENT: normal bowel sounds, soft, tenderness. ABSENT: distended, guarding, mass, organolmegaly, rebound Rectal exam: PRESENT: deferred Neurological exam: PRESENT: alert, awake, oriented to person, oriented to place , oriented to time, oriented to situation, CN II-XII grossly intact. ABSENT: motor sensory deficit Psychiatric exam: PRESENT: appropriate affect, normal mood. ABSENT: homicidal ideation, suicidal ideation Skin exam: PRESENT: dry, intact, warm. ABSENT: cyanosis, rash Results Laboratory Results: 06/09/17 05:39 06/09/17 05:39 06/08/17 06/08/17 06/09/17 15:26 15:26 05:39 WBC 15.3 H 16.0 H RBC 3.93 3.53 L Hgb 11.7 L 10.8 L Hct 34.7 L 31.6 L MCV 88 89 MCH 29.8 30.4 MCHC 33.8 34.1 RDW 12.7 13.0 Plt Count 272 249 Seg Neutrophils % 88.6 H 87.0 H Lymphocytes % 6.2 L 7.4 L Monocytes % 5.0 5.3 Eosinophils % 0.0 0.0 Basophils % 0.2 0.3 Absolute Neutrophils 13.5 H 13.9 H Absolute Lymphocytes 0.9 1.2 Absolute Monocytes 0.8 0.8 Absolute Eosinophils 0.0 0.0 Absolute Basophils 0.0 0.1 Sodium 133.6 L Potassium 4.5 Chloride 91 L Carbon Dioxide 26 Anion Gap 17 BUN 19 Creatinine 0.60 Est GFR ( Amer) > 60 Est GFR (Non-Af Amer) > 60 Glucose 286 H Calcium 9.2 Magnesium 1.1 L* Total Bilirubin 0.8 AST 19 ALT 24 Alkaline Phosphatase 117 Total Protein 8.3 H Albumin 4.7 Lipase 20.0 L 06/09/17 05:39 WBC RBC Hgb Hct MCV MCH MCHC RDW Plt Count Seg Neutrophils % Lymphocytes % Monocytes % Eosinophils % Basophils % Absolute Neutrophils Absolute Lymphocytes Absolute Monocytes Absolute Eosinophils Absolute Basophils Sodium 134.2 L Potassium 4.2 Chloride 97 L Carbon Dioxide 24 Anion Gap 13 BUN 14 Creatinine 0.58 Est GFR ( Amer) > 60 Est GFR (Non-Af Amer) > 60 Glucose 248 H Calcium 8.3 L Magnesium 1.7 Total Bilirubin 0.8 AST 14 ALT 24 Alkaline Phosphatase 100 Total Protein 6.6 Albumin 3.7 Lipase Impressions: Abdomen Ultrasound 06/08/17 00:00 IMPRESSION: Increased echogenicity in the dependent portion of the gallbladder which has the appearance of a combination of biliary sludge and small gallstones. There is some mild thickening of the gallbladder wall. The possibility of cholecystitis should be considered. Other findings as noted above Chest X-Ray 06/08/17 15:06 IMPRESSION: NO ACUTE RADIOGRAPHIC FINDING IN THE CHEST. Assessment & Plan - Diagnosis (1) Nausea & vomiting Qualifiers: Vomiting Intractability: intractable Is this a current diagnosis for this admission?: YesPlan: Most likely a from the acute cholecystitis (2) Abdominal pain Qualifiers: Abdominal location: generalized Qualified Code(s): R10.84 - Generalized abdominal pain Is this a current diagnosis for this admission?: YesPlan: From acute cholecystitis (3) Gallstone Qualifiers: Cholecystitis presence: without cholecystitis Is this a current diagnosis for this admission?: YesPlan: Consult the general surgery (4) Hypertension Qualifiers: Hypertension type: essential hypertension Qualified Code(s): I10 - Essential (primary) hypertension Is this a current diagnosis for this admission?: YesPlan: Currently all stable (5) Hyperlipidemia Qualifiers: Hyperlipidemia type: unspecified Qualified Code(s): E78.5 - Hyperlipidemia, unspecified Is this a current diagnosis for this admission?: Yes (6) Type 2 diabetes mellitus Qualifiers: Diabetes mellitus complication status: with unspecified complications Is this a current diagnosis for this admission?: YesPlan: Continues a sliding scale (7) Coronary artery disease Qualifiers: Coronary Disease-Associated Artery/Lesion type: unspecified vessel or lesion type Is this a current diagnosis for this admission?: YesPlan: Patient is currently stable per cardiology standpoint - Time Time Spent with patient: 15-24 minutes Medications reviewed and adjusted accordingly: Yes Anticipated discharge: Home Within: Other - Inpatient Certification Medical Necessity: Need For IV Fluids, Need for Surgery 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
[2017-06-09] MEDS ORDERED: BUPIVACAINE HCL 0.25 % INJ/PF (2.5 MG/1 ML) 30 ML VIAL ONE (13:11)
--- NOTE | 2017-06-09 15:29 | Physician Advisory Note ---
Physician Advisor ProgressNote .: Pursuant to the plan for [facility], I have reviewed the medical record for this patient. Physician Advisor Statement: Nice documentation of reason for abd pain/N/V. 1. Please clarify documentation: "Acute cholecystitis" but "gallstone, without cholecystitis" in attending progress note & H&P. 2. "Acute hyponatremia, likely due to intravascular volume depletion from N/V" Thanks! CK
[2017-06-09] MEDS ORDERED: FENTANYL CITRATE INJ/PF 100 MCG/2 ML AMPUL ONE ×2 (15:54)
[2017-06-09] MEDS ORDERED: LIDOCAINE 2% INJ-PF (20 MG/ML) 10 ML AMPUL ONE (15:54)
[2017-06-09] MEDS ORDERED: MIDAZOLAM 2 MG/2 ML INJ ONE (15:55)
[2017-06-09] MEDS ORDERED: EPHEDRINE SULFATE INJ 50 MG/1 ML AMPULE ONE (15:55)
[2017-06-09] MEDS ORDERED: DEXAMETHASONE SOD PHOSPHATE INJ 4 MG/1 ML VIAL ONE (15:55)
[2017-06-09] MEDS ORDERED: PROPOFOL INJ 200 MG/20 ML VIAL IV ONE (15:56)
[2017-06-09] MEDS ORDERED: HYDROMORPHONE HCL INJ/PF 2 MG/ML AMPULE ONE (15:56)
[2017-06-09] MEDS ORDERED: ACETAMINOPHEN 100 ML IV ONE (15:56)
[2017-06-09] MEDS ORDERED: ONDANSETRON HCL INJ/PF 4 MG/2 ML SDV ONE (15:56)
--- NOTE | 2017-06-09 16:24 | EKG REPORT ---
SEVERITY:- NORMAL ECG - SINUS RHYTHM : Confirmed by: Bridgett Pink MD 09-Jun-2017 16:23:14
--- NOTE | 2017-06-09 16:24 | EKG REPORT ---
SEVERITY:- NORMAL ECG - SINUS RHYTHM : Confirmed by: Bridgett Pink MD 09-Jun-2017 16:23:17
[2017-06-09] MEDS ORDERED: DIPHENHYDRAMINE HCL 50 MG/ML VIAL IV PRN (18:57)
[2017-06-09] MEDS ORDERED: ONDANSETRON HCL INJ/PF 4 MG/2 ML SDV IV PRN ×2 (18:57→20:20)
[2017-06-09] MEDS ORDERED: PROMETHAZINE HCL INJ 25 MG/1 ML VIAL IV PRN ×2 (18:57)
[2017-06-09] MEDS ORDERED: MEPERIDINE HCL/PF INJ 25 MG/1 ML DISP.SYRIN IV PRN (18:57)
[2017-06-09] MEDS ORDERED: FENTANYL CITRATE INJ/PF 100 MCG/2 ML AMPUL IV PRN ×3 (18:57)
[2017-06-09] MEDS ORDERED: KETOROLAC TROMETHAMINE 10 MG TABLET PO PRN (20:20)
[2017-06-09] MEDS ORDERED: OXYCODONE-ACETAMINOPHEN 5-325 MG TABLET PO PRN ×2 (20:20→20:39)
--- NOTE | 2017-06-09 20:28 | Operative Report ---
Operative Report DATE OF SURGERY: 06/09/17 PREOPERATIVE DIAGNOSIS: Acute cholecystitis with cholelithiasis POSTOPERATIVE DIAGNOSIS: Same OPERATION: 1. Laparoscopic cholecystectomy. 2. Extremely difficult modifier. SURGEON: JUNAID DAVIS ANESTHESIA: GA TISSUE REMOVED OR ALTERED: 1 gallbladder with contents COMPLICATIONS: None ESTIMATED BLOOD LOSS: 200 cc INTRAOPERATIVE FINDINGS: See below PROCEDURE: The patient was taken the preop holding area the main operating where general anesthesia was induced, arms were abducted, abdomen exposed, prepped and draped sterile fashion. Surgical plan surgical timeout were conducted Skin was any stopped record percent Marcaine. A supraumbilical vertical incision was made with a knife and Veress needle inserted the peritoneal cavity pneumoperitoneum was established. Veress needle was removed, 5 mm ports inserted a 5 mm viewing scope was inserted. Under direct visualization 3 additional ports were placed one subxiphoid, 2 in the subcostal position. Findings are significant for acute cholecystitis. The gallbladder was aspirated of some white bile using the laparoscopic trocar. We placed the patient in steep reverse Trendelenburg and tilted to her left side. Filmy adhesions between the omentum and gallbladder were taken down. We now tackled the gallbladder from a top down approach until we got into some bleeding from the liver bed again due to the thick inflammatory peel. Please see photos. We then elevated the infundibulum and dissected out the cystic duct. Unfortunately was very wide and so therefore we did not attempt to divide it at this point. A single branch of the cystic artery was adjacent to the node of Calot low and this was surrounded with right angle clamps clipped twice proximally once distally divided We now removed in a circumferential fashion both left lateral and medial aspects of the gallbladder-liver interface using electrocautery suction as well as smoke evacuator to debride the gallbladder from the liver bed. Eventually we had the gallbladder suspended from the cystic duct, and an additional branch of the cystic artery. Cystic artery branch was surrounded by a right angle clamp, clipped twice proximally photographed once distally divided with scissors. The gallbladder was now suspended from the cystic duct. Some additional adhesions were taken down, and again this area was extremely inflamed. Photos taken. I elected to place a Endoloop PDS 3 a variety on the gallbladder side of the cystic duct and the cystic duct. There was some mucus evacuated. We spent a fair amount of time trying to massage any potential sludge or stones from the cystic duct but there was none. We did not get any reflux of bile out of the cystic duct stump. An additional 3-0 PDS suture ligature was placed around the cystic duct proximally and cystic duct divided. Gallbladder was placed in Endobag and brought the patient after extending the supraumbilical vertical port site incision. We returned the peritoneal cavity irrigated out the pelvis and the subcostal as well as subdiaphragmatic areas. There was no mechanical bleeding. Suture ligature on the cystic duct and clips on the cystic artery were felt to be in satisfactory position. We now closed the supraumbilical fascial defect with multiple 0 PDS sutures. We inspected this area laparoscopically there was no mechanical bleeding from this incision site. At this point felt the operation was complete. Sponge and counts correct. All ports removed under direct visualization, pneumoperitoneum evacuated wounds closed with 3-0 Vicryl benzoin and Steri-Strips Patient tolerated procedure well, extubated, taken recovery in stable condition.
[2017-06-09] MEDS: ATORVASTATIN CALCIUM 10 MG TABLET PO SCH (22:58)
[2017-06-10] MEDS ORDERED: KETOROLAC TROMETHAMINE 10 MG TABLET ONE (00:46)
[2017-06-10 06:36] LABS: ABSOLUTE LYMPHOCYTES (AUTO) 0.7 10^3/uL (0.5-4.7); ABSOLUTE MONOCYTES (AUTO) 0.6 10^3/uL (0.1-1.4); BASOPHILS % (AUTO) 0.1 % (0-2); EOSINOPHILS % (AUTO) 0.1 % (0-6); HEMOGLOBIN 10.5 g/dL (12.0-15.5); HGB HCT DIFFERENCE 0.5; LYMPHOCYTES % (AUTO) 6.4 % (13-45); MEAN CORPUSCULAR HEMOGLOBIN 30.4 pg (27.0-33.4); MEAN CORPUSCULAR HGB CONC 33.8 g/dL (32.0-36.0); MEAN CORPUSCULAR VOLUME 90 fl (80-97); MONOCYTES % (AUTO) 4.9 % (3-13); RED BLOOD COUNT 3.45 10^6/uL (3.72-5.28); RED CELL DISTRIBUTION WIDTH 13.4 % (11.5-14.0); SEGMENTED NEUTROPHILS % (AUTO) 88.5 % (42-78); WHITE BLOOD COUNT 11.3 10^3/uL (4.0-10.5)
[2017-06-10 07:05] LABS: ALANINE AMINOTRANSFERASE 61 U/L (9-52); ALBUMIN 3.1 g/dL (3.5-5.0); ALKALINE PHOSPHATASE 87 U/L (38-126); ANION GAP 15 (5-19); ASPARTATE AMINO TRANSFERASE 77 U/L (14-36); BILIRUBIN,DIRECT 0.4 mg/dL (0.0-0.4); BILIRUBIN,TOTAL 0.7 mg/dL (0.2-1.3); BLOOD UREA NITROGEN 15 mg/dL (7-20); CALCIUM 7.8 mg/dL (8.4-10.2); CARBON DIOXIDE 19 mmol/L (22-30); CHLORIDE 101 mmol/L (98-107); CREATININE RESULT 0.59 mg/dL (0.52-1.25); GLUCOSE 283 mg/dL (75-110); MAGNESIUM 1.7 mg/dL (1.6-2.3); POTASSIUM 4.2 mmol/L (3.6-5.0)
[2017-06-10] MEDS: INSULIN LISPRO 100 UNIT/ML 3 ML VIAL SUBCUT PRN ×4 (07:07→22:37)
[2017-06-10] MEDS ORDERED: ONDANSETRON HCL INJ/PF 4 MG/2 ML SDV IV PRN (08:09)
--- NOTE | 2017-06-10 08:33 | PDOC PROGRESS REPORT ---
Subjective Progress Note for:: 06/10/17 Subjective:: Patient is feeling much better this morning status post lap chyna. Patient's denied any chest pain denied any abdominal pain no nausea no vomiting Physical Exam Vital Signs: Temp Pulse Resp BP Pulse Ox 98.8 F 84 18 136/56 H 95 06/10/17 04:06 06/10/17 04:06 06/10/17 00:24 06/10/17 04:06 06/10/17 04:06 Intake & Output 06/09/17 06/10/17 06/11/17 06:59 06:59 06:59 Intake Total 1250 5750 Output Total 425 3000 Balance 825 2750 Weight 74.9 kg 81.7 kg General appearance: PRESENT: no acute distress, well-developed, well-nourished Head exam: PRESENT: atraumatic, normocephalic Eye exam: PRESENT: conjunctiva pink, EOMI, PERRLA. ABSENT: scleral icterus Ear exam: PRESENT: normal external ear exam Mouth exam: PRESENT: moist, tongue midline Neck exam: PRESENT: full ROM. ABSENT: carotid bruit, JVD, lymphadenopathy, thyromegaly Respiratory exam: PRESENT: clear to auscultation jose Cardiovascular exam: PRESENT: RRR. ABSENT: diastolic murmur, rubs, systolic murmur Pulses: PRESENT: normal dorsalis pedis pul, +2 pedal pulses bilateral Vascular exam: PRESENT: normal capillary refill GI/Abdominal exam: PRESENT: normal bowel sounds, soft. ABSENT: distended, guarding, mass, organolmegaly, rebound, tenderness Additonal comments: Surgical scar is intact dressing Rectal exam: PRESENT: deferred Neurological exam: PRESENT: alert, awake, oriented to person, oriented to place , oriented to time, oriented to situation, CN II-XII grossly intact. ABSENT: motor sensory deficit Psychiatric exam: PRESENT: appropriate affect, normal mood. ABSENT: homicidal ideation, suicidal ideation Skin exam: PRESENT: dry, intact, warm. ABSENT: cyanosis, rash Results Laboratory Results: 06/10/17 05:30 06/10/17 05:30 06/10/17 06/10/17 05:30 05:30 WBC 11.3 H RBC 3.45 L Hgb 10.5 L Hct 31.0 L MCV 90 MCH 30.4 MCHC 33.8 RDW 13.4 Plt Count 239 Seg Neutrophils % 88.5 H Lymphocytes % 6.4 L Monocytes % 4.9 Eosinophils % 0.1 Basophils % 0.1 Absolute Neutrophils 10.0 H Absolute Lymphocytes 0.7 Absolute Monocytes 0.6 Absolute Eosinophils 0.0 Absolute Basophils 0.0 Sodium 135.0 L Potassium 4.2 Chloride 101 Carbon Dioxide 19 L Anion Gap 15 BUN 15 Creatinine 0.59 Est GFR ( Amer) > 60 Est GFR (Non-Af Amer) > 60 Glucose 283 H Calcium 7.8 L Magnesium 1.7 Total Bilirubin 0.7 AST 77 H ALT 61 H Alkaline Phosphatase 87 Total Protein 6.0 L Albumin 3.1 L Impressions: Abdomen Ultrasound 06/08/17 00:00 IMPRESSION: Increased echogenicity in the dependent portion of the gallbladder which has the appearance of a combination of biliary sludge and small gallstones. There is some mild thickening of the gallbladder wall. The possibility of cholecystitis should be considered. Other findings as noted above Chest X-Ray 06/08/17 15:06 IMPRESSION: NO ACUTE RADIOGRAPHIC FINDING IN THE CHEST. Assessment & Plan - Diagnosis (1) Nausea & vomiting Qualifiers: Vomiting Intractability: intractable Is this a current diagnosis for this admission?: YesPlan: Currently all resolved (2) Abdominal pain Qualifiers: Abdominal location: generalized Qualified Code(s): R10.84 - Generalized abdominal pain Is this a current diagnosis for this admission?: YesPlan: From acute cholecystitis status post cholecystectomy (3) Gallstone Qualifiers: Cholecystitis presence: without cholecystitis Is this a current diagnosis for this admission?: YesPlan: Consult the general surgery (4) Hypertension Qualifiers: Hypertension type: essential hypertension Qualified Code(s): I10 - Essential (primary) hypertension Is this a current diagnosis for this admission?: YesPlan: Currently all stable (5) Hyperlipidemia Qualifiers: Hyperlipidemia type: unspecified Qualified Code(s): E78.5 - Hyperlipidemia, unspecified Is this a current diagnosis for this admission?: Yes (6) Type 2 diabetes mellitus Qualifiers: Diabetes mellitus complication status: with unspecified complications Is this a current diagnosis for this admission?: YesPlan: Continues a sliding scale (7) Coronary artery disease Qualifiers: Coronary Disease-Associated Artery/Lesion type: unspecified vessel or lesion type Is this a current diagnosis for this admission?: YesPlan: Currently all stable - Time Time Spent with patient: 15-24 minutes Medications reviewed and adjusted accordingly: Yes Anticipated discharge: Home Within: within 24 hours - Inpatient Certification Medical Necessity: Need Close Monitoring Due to Risk of Patient Decompensation, Need for IV Antibiotics Post Hospital Care: D/C Rn Training Documentation - Plan Summary Plan Summary: Per surgery patient started a clear liquid diet and if he advance the diet will stop the IV fluid. Discussed with the patient and the family about the current conditions and if the patient's remained stable hopefully discharge within the next 24 hours if it is okay with the surgery
[2017-06-10] MEDS: DOCUSATE SODIUM 100 MG CAPSULE PO SCH ×2 (10:12→17:43)
[2017-06-10] MEDS: PANTOPRAZOLE SODIUM 40 MG VIAL IV SCH ×2 (10:12→22:37)
[2017-06-10] MEDS: CALCIUM CARBONATE 250 MG/VITAMIN D3 125 UNIT TABLET PO SCH ×2 (10:12→17:40)
[2017-06-10] MEDS: ATENOLOL 50 MG TABLET PO SCH (10:12)
[2017-06-10] MEDS: CEFEPIME HCL 1 GM in DEXTROSE 5%-WATER 50 ML IV SCH ×2 (10:17→22:36)
--- NOTE | 2017-06-10 11:13 | PDOC PROGRESS REPORT ---
Subjective Progress Note for:: 06/10/17 Subjective:: Feels Much better. Physical Exam Vital Signs: Temp Pulse Resp BP Pulse Ox 99.9 F 89 18 132/54 H 94 06/10/17 09:18 06/10/17 09:18 06/10/17 09:18 06/10/17 09:18 06/10/17 09:18 Intake & Output 06/09/17 06/10/17 06/11/17 06:59 06:59 06:59 Intake Total 1250 5750 Output Total 425 3000 Balance 825 2750 Weight 74.9 kg 81.7 kg General appearance: PRESENT: no acute distress, cooperative Respiratory exam: PRESENT: clear to auscultation jose Cardiovascular exam: PRESENT: RRR GI/Abdominal exam: PRESENT: other - Soft, Nondistended, mild right upper quadrant abdominal tenderness. Wounds are clean dry and intact Results Laboratory Results: 06/10/17 05:30 06/10/17 05:30 06/10/17 06/10/17 05:30 05:30 WBC 11.3 H RBC 3.45 L Hgb 10.5 L Hct 31.0 L MCV 90 MCH 30.4 MCHC 33.8 RDW 13.4 Plt Count 239 Seg Neutrophils % 88.5 H Lymphocytes % 6.4 L Monocytes % 4.9 Eosinophils % 0.1 Basophils % 0.1 Absolute Neutrophils 10.0 H Absolute Lymphocytes 0.7 Absolute Monocytes 0.6 Absolute Eosinophils 0.0 Absolute Basophils 0.0 Sodium 135.0 L Potassium 4.2 Chloride 101 Carbon Dioxide 19 L Anion Gap 15 BUN 15 Creatinine 0.59 Est GFR ( Amer) > 60 Est GFR (Non-Af Amer) > 60 Glucose 283 H Calcium 7.8 L Magnesium 1.7 Total Bilirubin 0.7 AST 77 H ALT 61 H Alkaline Phosphatase 87 Total Protein 6.0 L Albumin 3.1 L Impressions: Abdomen Ultrasound 06/08/17 00:00 IMPRESSION: Increased echogenicity in the dependent portion of the gallbladder which has the appearance of a combination of biliary sludge and small gallstones. There is some mild thickening of the gallbladder wall. The possibility of cholecystitis should be considered. Other findings as noted above Chest X-Ray 06/08/17 15:06 IMPRESSION: NO ACUTE RADIOGRAPHIC FINDING IN THE CHEST. Assessment & Plan - Diagnosis (1) Cholecystitis, acute with cholelithiasis Is this a current diagnosis for this admission?: YesPlan: Post laparoscopic cholecystectomy. Patient looks good. Ambulate. May discharge patient home later today or tomorrow depending on how she feels. May advance diet to low-fat diet as tolerated follow-up with Dr. Menjivar in 1-2 weeks. Stay active but avoid strenuous activity at home.
--- NOTE | 2017-06-10 11:23 | PDOC PROGRESS REPORT ---
Subjective Progress Note for:: 06/10/17 Subjective:: Patient seems to be doing better with gradual improvement. Patient is status post lap cholecystectomy. Patient has slight right upper quadrant discomfort from recent surgery. Pt is denying any chest arm or neck discomfort. Patient denying any PND, orthopnea. Patient denied any sustained palpitations, dizziness, syncope, near syncope. Patient denying any fever chills. Patient denying any other significant discomfort. Patient is maintaining sinus rhythm. Review of systems: Rest review of systems negative. Medications: Medications have been reviewed. Physical Exam Vital Signs: Temp Pulse Resp BP Pulse Ox 99.9 F 89 18 132/54 H 94 06/10/17 09:18 06/10/17 09:18 06/10/17 09:18 06/10/17 09:18 06/10/17 09:18 Intake & Output 06/09/17 06/10/17 06/11/17 06:59 06:59 06:59 Intake Total 1250 5750 Output Total 425 3000 Balance 825 2750 Weight 74.9 kg 81.7 kg Exam: GENERAL: well-nourished and in no acute distress. Alert and oriented x3 HEAD: Atraumatic, normocephalic. EYES: Pupils equal round and reactive to light, extraocular movements intact, sclera anicteric, conjunctiva are normal. ENT: TMs normal, nares patent, oropharynx clear without exudates. Moist mucous membranes. No oral ulcerations or bleeding gums noted NECK: supple without lymphadenopathy. Trachea is central. No cervical or axillary lymphadenopathy noted. Carotids are 2+, JVD WNL LUNGS: Respiration seems nonlabored, no significant accessory muscle action noted. Breath sounds clear to auscultation bilaterally and equal noted. No wheezes rales or rhonchi noted. No significant dullness noted on percussion. CHEST: Palpation of the chest wall shows no significant chest wall tenderness. No other significant abnormalities noted. 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 ABDOMEN: Soft, slight right upper quadrant tenderness appreciated, normoactive bowel sounds. No guarding, no rebound. No rigidity noted . No masses appreciated. EXTREMITIES: Pedal pulses are 1-2+, no calf tenderness noted. No clubbing or cyanosis. Negative pedal edema noted NEUROLOGICAL: Focused neurological exam showed no significant neurologic deficit. Normal speech, no focal weakness appreciated. PSYCH: Normal mood, normal affect. Judgment and insight within normal limits. SKIN: No significant ecchymosis, rash, ulcerations or signs of pruritus noted. MUSCULOSKELETAL EXAM: No significant joint swelling noted. Results Laboratory Results: 06/10/17 05:30 06/10/17 05:30 06/10/17 06/10/17 05:30 05:30 WBC 11.3 H RBC 3.45 L Hgb 10.5 L Hct 31.0 L MCV 90 MCH 30.4 MCHC 33.8 RDW 13.4 Plt Count 239 Seg Neutrophils % 88.5 H Lymphocytes % 6.4 L Monocytes % 4.9 Eosinophils % 0.1 Basophils % 0.1 Absolute Neutrophils 10.0 H Absolute Lymphocytes 0.7 Absolute Monocytes 0.6 Absolute Eosinophils 0.0 Absolute Basophils 0.0 Sodium 135.0 L Potassium 4.2 Chloride 101 Carbon Dioxide 19 L Anion Gap 15 BUN 15 Creatinine 0.59 Est GFR ( Amer) > 60 Est GFR (Non-Af Amer) > 60 Glucose 283 H Calcium 7.8 L Magnesium 1.7 Total Bilirubin 0.7 AST 77 H ALT 61 H Alkaline Phosphatase 87 Total Protein 6.0 L Albumin 3.1 L EKG Comments: Shows sinus rhythm without any sustained tachycardia or bradycardia arrhythmias Impressions: Abdomen Ultrasound 06/08/17 00:00 IMPRESSION: Increased echogenicity in the dependent portion of the gallbladder which has the appearance of a combination of biliary sludge and small gallstones. There is some mild thickening of the gallbladder wall. The possibility of cholecystitis should be considered. Other findings as noted above Chest X-Ray 06/08/17 15:06 IMPRESSION: NO ACUTE RADIOGRAPHIC FINDING IN THE CHEST. Assessment & Plan - Diagnosis (1) Preoperative cardiovascular examination Is this a current diagnosis for this admission?: Yes (2) Cholecystitis, acute with cholelithiasis Is this a current diagnosis for this admission?: Yes (3) Coronary artery disease Qualifiers: Coronary Disease-Associated Artery/Lesion type: unspecified vessel or lesion type Is this a current diagnosis for this admission?: Yes (4) Hyperlipidemia Qualifiers: Hyperlipidemia type: unspecified Qualified Code(s): E78.5 - Hyperlipidemia, unspecified Is this a current diagnosis for this admission?: Yes (5) Hypertension Qualifiers: Hypertension type: essential hypertension Qualified Code(s): I10 - Essential (primary) hypertension Is this a current diagnosis for this admission?: Yes (6) Type 2 diabetes mellitus Qualifiers: Diabetes mellitus complication status: with unspecified complications Is this a current diagnosis for this admission?: Yes - Notes Notes: Labs reviewed. Telemetry strips reviewed. Echo on lisinopril at a lower dose. Patient already started back on beta-silvano. Continue with statin. Preop cardiovascular evaluation: Currently postop. Patient has known history of coronary artery bypass graft surgery in 2008 but has been stable without any symptoms indicative of angina or angina equivalent symptom, CHF, significant cardiac dysrhythmia. EKG ordered for this morning. Coronary artery disease: Patient is symptomatically stable. Continue statins, beta-silvano, LAKESHA inhibitor therapy/ARB therapy. Hypertension: Reasonably well controlled. Blood pressure goal in this patient is 135/85 or less. This was discussed with the patient. Currently blood pressure under reasonable control. Better medication for this patient are LAKESHA inhibitor/ARB/beta silvano etc. discussed side effects of uncontrolled hypertension and also severe hypotension. Diabetes: Recommend good control of blood sugar. However should avoid any hypoglycemia. Patient being expertly managed by primary care M.D. Hyperlipidemia: LDL goal is less than 70. Recommend statin therapy at least intermediate or high dose, of high potency status. Periodic lipid panel and liver panel is indicated. Patient to report any significant muscle discomfort or other side effects. Acute cholecystitis with cholelithiasis: Patient status post surgery and seems to be doing well postoperatively. - Time Time with patient: 15-25 minutes - CODE STATUS was discussed, patient remains full code. Surrogate decision-maker unchanged. Multiple medical problems were addressed. More than 50% of the time spent coordinating care, discussing management plans with involved caregivers. Management plans discussed with involved personnels. Medical decision making was of moderate, patient's has multiple comorbidities. Medications reviewed and adjusted accordingly: Yes
--- NOTE | 2017-06-10 17:19 | EKG REPORT ---
SEVERITY:- NORMAL ECG - SINUS RHYTHM : Confirmed by: Bridgett Pink MD 10-Jun-2017 17:18:54
[2017-06-10] MEDS ORDERED: INSULIN GLARGINE,HUM.REC.ANLOG 300 UNIT/3 ML INSULN.PEN SUBCUT SCH (22:00)
[2017-06-10] MEDS: LISINOPRIL 5 MG TABLET PO SCH (22:38)
[2017-06-11 05:21] LABS: ABSOLUTE LYMPHOCYTES (AUTO) 1.6 10^3/uL (0.5-4.7); ABSOLUTE MONOCYTES (AUTO) 0.6 10^3/uL (0.1-1.4); ABSOLUTE NEUT (AUTO) 7.1 10^3/uL (1.7-8.2); BASOPHILS % (AUTO) 0.3 % (0-2); EOSINOPHILS % (AUTO) 0.5 % (0-6); HEMATOCRIT 28.4 % (36.0-47.0); HEMOGLOBIN 9.8 g/dL (12.0-15.5); LYMPHOCYTES % (AUTO) 17.5 % (13-45); MEAN CORPUSCULAR HEMOGLOBIN 30.9 pg (27.0-33.4); MEAN CORPUSCULAR HGB CONC 34.5 g/dL (32.0-36.0); MEAN CORPUSCULAR VOLUME 90 fl (80-97); MONOCYTES % (AUTO) 6.4 % (3-13); RED BLOOD COUNT 3.16 10^6/uL (3.72-5.28); RED CELL DISTRIBUTION WIDTH 12.9 % (11.5-14.0); SEGMENTED NEUTROPHILS % (AUTO) 75.3 % (42-78); WHITE BLOOD COUNT 9.4 10^3/uL (4.0-10.5)
[2017-06-11 05:42] LABS: ALANINE AMINOTRANSFERASE 36 U/L (9-52); ALBUMIN 2.8 g/dL (3.5-5.0); ALKALINE PHOSPHATASE 85 U/L (38-126); ANION GAP 10 (5-19); ASPARTATE AMINO TRANSFERASE 20 U/L (14-36); BILIRUBIN,DIRECT 0.4 mg/dL (0.0-0.4); BILIRUBIN,TOTAL 0.6 mg/dL (0.2-1.3); BLOOD UREA NITROGEN 13 mg/dL (7-20); CALCIUM 7.4 mg/dL (8.4-10.2); CARBON DIOXIDE 22 mmol/L (22-30); CHLORIDE 101 mmol/L (98-107); CREATININE RESULT 0.58 mg/dL (0.52-1.25); GLUCOSE 245 mg/dL (75-110); POTASSIUM 3.9 mmol/L (3.6-5.0); SODIUM 133.2 mmol/L (137-145); TOTAL PROTEIN 5.2 g/dL (6.3-8.2)
[2017-06-11 08:29] VITALS: BP 125/48
[2017-06-11] MEDS: INSULIN LISPRO 100 UNIT/ML 3 ML VIAL SUBCUT PRN (08:34)
[2017-06-11] MEDS: CEFEPIME HCL 1 GM in DEXTROSE 5%-WATER 50 ML IV SCH (09:42)
[2017-06-11] MEDS: CALCIUM CARBONATE 250 MG/VITAMIN D3 125 UNIT TABLET PO SCH (09:42)
[2017-06-11] MEDS: PANTOPRAZOLE SODIUM 40 MG VIAL IV SCH (09:42)
[2017-06-11] MEDS: ATENOLOL 50 MG TABLET PO SCH (09:42)
[2017-06-11] MEDS: DOCUSATE SODIUM 100 MG CAPSULE PO SCH (09:42)
[2017-06-11] MEDS: LISINOPRIL 5 MG TABLET PO SCH (09:42)
--- NOTE | 2017-06-11 10:37 | PDOC DISCHARGE SUMMARY ---
General - Admit/Disc Date/PCP Admission Date/Primary Care Provider: 06/08/17 14:06 MAURISIO SAINZ MD Discharge Date: 06/11/17 - Discharge Diagnosis (1) Nausea & vomiting Is this a current diagnosis for this admission?: YesSummary: Currently all resolved (2) Abdominal pain Is this a current diagnosis for this admission?: YesSummary: Currently all resolved (3) Gallstone Is this a current diagnosis for this admission?: YesSummary: Status post lap cholecystectomy (4) Hypertension Is this a current diagnosis for this admission?: YesSummary: Continues to current medication (5) Hyperlipidemia Is this a current diagnosis for this admission?: YesSummary: Restart the Lipitor (6) Type 2 diabetes mellitus Is this a current diagnosis for this admission?: YesSummary: Continues to current medications (7) Coronary artery disease Is this a current diagnosis for this admission?: YesSummary: Currently all stable - Additional Information Resuscitation Status: Full Code Discharge Diet: As Tolerated, Cardiac, Diabetic Discharge Activity: Activity As Tolerated, Balance Activity w/Rest, No Lifting Over 10 Pounds, Slowly Increase Activity, No tub bath Home Medications: Aspirin [Ecotrin] 325 mg PO DAILY 06/08/17 Atenolol [Tenormin] 25 mg PO DAILY 06/08/17 Calcium Carbonate/Vitamin D3 [Caltrate 600 Plus D3 Tablet] 1 tab PO BID Cyanocobalamin (Vitamin B-12) [Vitamin B12] 2,500 mcg PO DAILY 06/08/17 Gluc Ca/Chondro Ca A/Vit C/Mn [Glucosamine 1,500 Complex Cap] 2 cap PO DAILY Insulin Glargine,Hum.rec.anlog [Lantus Solostar] 16 units SQ QPM 06/08/17 Insulin Lispro [Humalog Kwikpen U-100] 0 units SQ .PERSLIDINGSCALE 06/08/17 Lisinopril [Zestril] 10 mg PO DAILY 06/08/17 Metformin HCl [Glucophage XR 500 mg Tablet] 1,000 mg PO BID 06/08/17 Rosuvastatin Calcium [Crestor 5 mg Tablet] 5 mg PO DAILY 06/08/17 Vitamin B Complex [Super B Complex] 1 cap PO DAILY 06/08/17 History of Present Illness History of Present Illness: MEGAN ARELLANO is a 62 year old female This is a 62-year-old female with a history of the type 2 diabetes and a history of the hypertension and coronary artery disease came to the office because of the complaint of some nausea vomiting some abdominal discomfort since last night. Patient recently has see her Dr. Elliott and order the ultrasound of the abdomen with so some gallstone but no other acute finding and patient scheduled for the outpatients of the procedures. Patient's intractable nausea and vomiting and discussed with the Dr. Elliott and suggest probably most likely coming from the gallstones and decided to admit in the hospital for further surgical evaluations. Patient's denied any chest pain denied any shortness of the breath. Hospital Course Hospital Course: This is a 62-year-old female present in the office with a complaint of abdominal pain nausea vomiting and admitting in the hospital for the acute cholecystitis and patient underwent for the left cholecystectomy.Patient's doing much better after the surgery Patient in the hospital before the surgery have elevated white count and the fever and after the surgery everything was resolved Patient's p.o. intake is fair and patient seen by the surgery after the surgery and suggest the patient's can discharge and follow as outpatient Patient's white count is also normal Patients to move on the hallway without any problems and patient's back to the baseline and patient's discharge home with the stable conditions Discussed with the Dr. Arellano and updated about the all the patient's status Follow in the 1 week in the office repeat the CBC and Chem-12 If the patient have any fever call back may be need antibiotic need a further workup Physical Exam Vital Signs: Temp Pulse Resp BP Pulse Ox 98.3 F 69 16 125/48 L 98 06/11/17 10:15 06/11/17 10:15 06/11/17 10:15 06/11/17 07:36 06/11/17 10:15 Intake & Output 06/10/17 06/11/17 06/12/17 06:59 06:59 06:59 Intake Total 5750 2455 Output Total 3000 2600 Balance 2750 -145 Weight 81.7 kg 81.7 kg General appearance: PRESENT: no acute distress, well-developed, well-nourished Head exam: PRESENT: atraumatic, normocephalic Eye exam: PRESENT: conjunctiva pink, EOMI, PERRLA. ABSENT: scleral icterus Ear exam: PRESENT: normal external ear exam Mouth exam: PRESENT: moist, tongue midline Neck exam: PRESENT: full ROM. ABSENT: carotid bruit, JVD, lymphadenopathy, thyromegaly Respiratory exam: PRESENT: clear to auscultation jose Cardiovascular exam: PRESENT: RRR. ABSENT: diastolic murmur, rubs, systolic murmur Pulses: PRESENT: normal dorsalis pedis pul, +2 pedal pulses bilateral Vascular exam: PRESENT: normal capillary refill GI/Abdominal exam: PRESENT: normal bowel sounds, soft. ABSENT: distended, guarding, mass, organolmegaly, rebound, tenderness Rectal exam: PRESENT: deferred Neurological exam: PRESENT: alert, awake, oriented to person, oriented to place , oriented to time, oriented to situation, CN II-XII grossly intact. ABSENT: motor sensory deficit Psychiatric exam: PRESENT: appropriate affect, normal mood. ABSENT: homicidal ideation, suicidal ideation Skin exam: PRESENT: dry, intact, warm. ABSENT: cyanosis, rash Results Laboratory Results: 06/11/17 04:56 06/11/17 04:56 06/11/17 06/11/17 04:56 04:56 WBC 9.4 RBC 3.16 L Hgb 9.8 L Hct 28.4 L MCV 90 MCH 30.9 MCHC 34.5 RDW 12.9 Plt Count 239 Seg Neutrophils % 75.3 Lymphocytes % 17.5 Monocytes % 6.4 Eosinophils % 0.5 Basophils % 0.3 Absolute Neutrophils 7.1 Absolute Lymphocytes 1.6 Absolute Monocytes 0.6 Absolute Eosinophils 0.0 Absolute Basophils 0.0 Sodium 133.2 L Potassium 3.9 Chloride 101 Carbon Dioxide 22 Anion Gap 10 BUN 13 Creatinine 0.58 Est GFR ( Amer) > 60 Est GFR (Non-Af Amer) > 60 Glucose 245 H Calcium 7.4 L Total Bilirubin 0.6 AST 20 ALT 36 Alkaline Phosphatase 85 Total Protein 5.2 L Albumin 2.8 L Impressions: Abdomen Ultrasound 06/08/17 00:00 IMPRESSION: Increased echogenicity in the dependent portion of the gallbladder which has the appearance of a combination of biliary sludge and small gallstones. There is some mild thickening of the gallbladder wall. The possibility of cholecystitis should be considered. Other findings as noted above Chest X-Ray 06/08/17 15:06 IMPRESSION: NO ACUTE RADIOGRAPHIC FINDING IN THE CHEST. Plan Time Spent: Less than 30 Minutes - Patient's discharge home with the stable condition and will get the CBC and Chem-12 the next week follow with the general surgery as scheduled for the postop
--- NOTE | 2017-06-11 13:29 | PDOC PROGRESS REPORT ---
Subjective Progress Note for:: 06/11/17 Subjective:: Patient seems to be doing better with gradual improvement. Patient is status post lap cholecystectomy day 2 today. Patient has slight right upper quadrant discomfort from recent surgery. Pt is denying any chest arm or neck discomfort. Patient denying any PND, orthopnea. Patient denied any sustained palpitations, dizziness, syncope, near syncope. Patient denying any fever chills. Patient denying any other significant discomfort. Patient noted to have cough. Patient is maintaining sinus rhythm. Review of systems: Rest review of systems negative. Medications: Medications have been reviewed. Physical Exam Vital Signs: Temp Pulse Resp BP Pulse Ox 98.3 F 69 16 125/48 L 98 06/11/17 10:15 06/11/17 10:15 06/11/17 10:15 06/11/17 07:36 06/11/17 10:15 Intake & Output 06/10/17 06/11/17 06/12/17 06:59 06:59 06:59 Intake Total 5750 2455 Output Total 3000 2600 Balance 2750 -145 Weight 81.7 kg 81.7 kg Exam: GENERAL: well-nourished and in no acute distress. Alert and oriented x3 HEAD: Atraumatic, normocephalic. EYES: Pupils equal round and reactive to light, extraocular movements intact, sclera anicteric, conjunctiva are normal. ENT: TMs normal, nares patent, oropharynx clear without exudates. Moist mucous membranes. No oral ulcerations or bleeding gums noted NECK: supple without lymphadenopathy. Trachea is central. No cervical or axillary lymphadenopathy noted. Carotids are 2+, JVD WNL LUNGS: Respiration seems nonlabored, no significant accessory muscle action noted. Bibasilar fine crackles noted. No wheezes rales or rhonchi noted. No significant dullness noted on percussion. CHEST: Palpation of the chest wall shows no significant chest wall tenderness. No other significant abnormalities noted. HEART: [place] [employer], No PSH, 1/6 MACHO aortic area, 1/6 roy systolic murmur mitral area, no rubs, no gallops. ABDOMEN: Soft, no significant tenderness appreciated, normoactive bowel sounds. No guarding, no rebound. No rigidity noted . No masses appreciated. EXTREMITIES: Pedal pulses are 1-2+, no calf tenderness noted. No clubbing or cyanosis.trace to 1+ pedal edema noted NEUROLOGICAL: Focused neurological exam showed no significant neurologic deficit. Normal speech, no focal weakness appreciated. PSYCH: Normal mood, normal affect. Judgment and insight within normal limits. SKIN: No significant ecchymosis, rash, ulcerations or signs of pruritus noted. MUSCULOSKELETAL EXAM: No significant joint swelling noted. Results Laboratory Results: 06/11/17 04:56 06/11/17 04:56 06/11/17 06/11/17 04:56 04:56 WBC 9.4 RBC 3.16 L Hgb 9.8 L Hct 28.4 L MCV 90 MCH 30.9 MCHC 34.5 RDW 12.9 Plt Count 239 Seg Neutrophils % 75.3 Lymphocytes % 17.5 Monocytes % 6.4 Eosinophils % 0.5 Basophils % 0.3 Absolute Neutrophils 7.1 Absolute Lymphocytes 1.6 Absolute Monocytes 0.6 Absolute Eosinophils 0.0 Absolute Basophils 0.0 Sodium 133.2 L Potassium 3.9 Chloride 101 Carbon Dioxide 22 Anion Gap 10 BUN 13 Creatinine 0.58 Est GFR ( Amer) > 60 Est GFR (Non-Af Amer) > 60 Glucose 245 H Calcium 7.4 L Total Bilirubin 0.6 AST 20 ALT 36 Alkaline Phosphatase 85 Total Protein 5.2 L Albumin 2.8 L EKG Comments: Telemetry shows sinus rhythm without any sustained tachycardia or bradycardia arrhythmia. Impressions: Abdomen Ultrasound 06/08/17 00:00 IMPRESSION: Increased echogenicity in the dependent portion of the gallbladder which has the appearance of a combination of biliary sludge and small gallstones. There is some mild thickening of the gallbladder wall. The possibility of cholecystitis should be considered. Other findings as noted above Chest X-Ray 06/08/17 15:06 IMPRESSION: NO ACUTE RADIOGRAPHIC FINDING IN THE CHEST. Assessment & Plan - Diagnosis (1) Preoperative cardiovascular examination Is this a current diagnosis for this admission?: Yes (2) Cholecystitis, acute with cholelithiasis Is this a current diagnosis for this admission?: Yes (3) Coronary artery disease Qualifiers: Coronary Disease-Associated Artery/Lesion type: unspecified vessel or lesion type Is this a current diagnosis for this admission?: Yes (4) Hyperlipidemia Qualifiers: Hyperlipidemia type: unspecified Qualified Code(s): E78.5 - Hyperlipidemia, unspecified Is this a current diagnosis for this admission?: Yes (5) Hypertension Qualifiers: Hypertension type: essential hypertension Qualified Code(s): I10 - Essential (primary) hypertension Is this a current diagnosis for this admission?: Yes (6) Type 2 diabetes mellitus Qualifiers: Diabetes mellitus complication status: with unspecified complications Is this a current diagnosis for this admission?: Yes - Notes Notes: Patient has done well postop. She has no cardiac problems. She has noted some coughing spells which I believe this is related to atelectasis. Patient encouraged in incentive spirometry. Coronary artery disease: Patient is symptomatically stable. Continue statins, beta-silvano, LAKESHA inhibitor therapy/ARB therapy. Hypertension: Reasonably well controlled. Blood pressure goal in this patient is 135/85 or less. This was discussed with the patient. Currently blood pressure under reasonable control. Continue beta-silvano, LAKESHA inhibitor therapy. May consider switch from atenolol to Beta-silvano such as carvedilol or Bystolic for better effect on blood sugars. Diabetes: Recommend good control of blood sugar. However should avoid any hypoglycemia. Patient being expertly managed by primary care MWeston Hyperlipidemia: LDL goal is less than 70. Recommend statin therapy at least intermediate or high dose, of high potency status. Periodic lipid panel and liver panel is indicated. Patient to report any significant muscle discomfort or other side effects. Acute cholecystitis with cholelithiasis: Patient status post surgery and seems to be doing well postoperatively. Will sign off. - Time Time with patient: 15-25 minutes - CODE STATUS was discussed, patient remains full code. Surrogate decision-maker unchanged. Multiple medical problems were addressed. More than 50% of the time spent coordinating care, discussing management plans with involved caregivers. Management plans discussed with involved personnels. Medical decision making was of moderate to high complexity , patient's has multiple comorbidities. Medications reviewed and adjusted accordingly: Yes
== END 2017-06-11 10:58 | disposition home or self-care (01) | DRG 419 ==
LOC: 3W 14:06
PROVIDERS: ADMIT Family Medicine; ATTEND Family Medicine
PROC: 0FT44ZZ Resection of Gallbladder, Percutaneous Endoscopic Approach (ICD-10-PCS; principal; 2017-06-09 16:00)
DX: K80.00 Calculus of gallbladder with acute cholecystitis without obstruction (principal); I10 Essential (primary) hypertension; E78.5 Hyperlipidemia, unspecified; E11.9 Type 2 diabetes mellitus without complications; K21.9 Gastro-esophageal reflux disease without esophagitis; I25.10 Atherosclerotic heart disease of native coronary artery without angina pectoris; Z79.899 Other long term (current) drug therapy; Z79.4 Long term (current) use of insulin; Z79.82 Long term (current) use of aspirin; I25.2 Old myocardial infarction; Z95.1 Presence of aortocoronary bypass graft; Z88.8 Allergy status to other drugs, medicaments and biological substances
CPT/HCPCS: 36415; 71010; 76700; 790; 80048; 80053; 80076; 82962; 83690; 83735; 85025; 85610; 88304; 93005; 93010; J0131; J0330; J0692; J0696; J1100; J1170; J1650; J1815; J2250; J2370; J2405; J2704; J2765; J3010; J3475; J3490; J7030; S0164

== ENCOUNTER 2019-05-26 00:09 | Emergency (ER) | payer BC, OTHER ==
[2019-05-26] MEDS ORDERED: ASPIRIN 81 MG TABLET, CHEWABLE PO ONE (00:14)
--- NOTE | 2019-05-26 00:45 | ER Document Report ---
ED General - General Chief Complaint: Arm Pain Stated Complaint: LEFT ARM AND NECK PAIN Time Seen by Provider: 05/26/19 00:40 Primary Care Provider: ZITA NGUYEN MD [EMERITUS] - Follow up as needed Notes: This is a pleasant 64-year-old female to the emergency department for evaluation of left arm pain. 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 Has severe coronary artery disease with bypass grafting and stents. Her previous anginal episodes were significant for left arm pain. Patient states that she developed the same arm pain yesterday and persisted into today. Had pain when up her left arm. Mild nausea no vomiting. Is scheduled to leave for [facility] in 2 weeks. There is some concern about her traveling with this recent chest pain episode. Her has arranged for admission [facility] where she can get angiography of her coronary arteries done in an expeditious manner. The card iologist at [facility] requested a emergency eval to make sure that she was stable enough to be transferred. Patient has known coronary artery disease. Insulin-dependent diabetes. Hypothyroidism. TRAVEL OUTSIDE OF THE [place] IN LAST 30 DAYS: No - HPI Onset: Yesterday Onset/Duration: Gradual, Waxing and waning Quality of pain: Achy Severity: Mild Pain Level: 1 Associated symptoms: Nausea Exacerbated by: Denies - Related Data Allergies/Adverse Reactions: codeine [Codeine] Adverse Reaction (Unknown, Verified 10/30/15 15:06) Nausea Past Medical History - General Information source: Patient - Social History Smoking Status: Never Smoker Frequency of alcohol use: None Drug Abuse: None Lives with: Spouse/Significant other Family History: CAD - Past Medical History Cardiac Medical History: Reports: Hx Coronary Artery Disease, Hx Heart Attack, Hx Hypercholesterolemia, Hx Hypertension Pulmonary Medical History: Denies: Hx Asthma Neurological Medical History: Denies: Hx Cerebrovascular Accident, Hx Seizures Endocrine Medical History: Reports: Hx Diabetes Mellitus Type 2 GI Medical History: Reports: Hx Gastroesophageal Reflux Disease. Denies: Hx Hepatitis, Hx Hiatal Hernia, Hx Ulcer Musculoskeletal Medical History: Reports Hx Arthritis Infectious Medical History: Denies: Hx Hepatitis Past Surgical History: Reports: Hx Coronary Artery Bypass Graft - 2 vessel bypass in 2008 at [facility], Hx Open Heart Surgery - CABGX 2. Denies: Hx Mastectomy, Hx Pacemaker Review of Systems - Review of Systems Notes: Constitutional: denies: Chills, Diaphoresis, Fever, Malaise, Weakness EENT: denies: Eye discharge, Blurred vision, Tearing, Double vision, Nose congestion, Nose discharge, Throat swelling, Mouth pain Cardiovascular: denies: Palpitations, Heart racing, Orthopnea, Dyspnea, Chest pain Respiratory: denies: Cough, Hurts to breathe, Wheezing, Shortness of breath Gastrointestinal: denies: Abdominal pain, Diarrhea, Nausea, Vomiting, Black stools, bright red blood in stool Genitourinary: denies: Burning, Dysuria, Discharge, Frequency, Flank pain, Hematuria Musculoskeletal: denies: Joint pain, Joint swelling, Muscle pain, Muscle stiffness, back pain Hematologic/Lymphatic: denies: Anemia, Easy bleeding, Easy bruising, Blood clots Neurological/Psychological: denies: Confusion, Dementia, Depression, Loss of consciousness Skin: No lesions, no masses, no skin breakdown, no abscesses Physical Exam - Vital signs Vitals: Temp Pulse Resp BP Pulse Ox 97.6 F 76 20 151/68 H 98 05/26/19 00:18 05/26/19 00:18 05/26/19 00:18 05/26/19 00:18 05/26/19 00:18 Interpretation: Normal - General General appearance: Appears well, Alert - HEENT Head: Normocephalic, Atraumatic Eyes: Normal Pupils: PERRL - Respiratory Respiratory status: No respiratory distress Chest status: Nontender Breath sounds: Normal Chest palpation: Normal - Cardiovascular Rhythm: Regular Heart sounds: Normal auscultation Murmur: No - Abdominal Inspection: Normal Distension: No distension Bowel sounds: Normal Tenderness: Nontender Organomegaly: No organomegaly - Back Back: Normal, Nontender - Extremities General upper extremity: Normal inspection, Nontender, Normal color, Normal ROM, Normal temperature General lower extremity: Normal inspection, Nontender, Normal color, Normal ROM, Normal temperature, Normal weight bearing. No: Leonardo's sign - Neurological Neuro grossly intact: Yes Cognition: Normal Orientation: AAOx4 Angela Coma Scale Eye Opening: Spontaneous Aaron Coma Scale Verbal: Oriented Aaron Coma Scale Motor: Obeys Commands Angela Coma Scale Total: 15 Speech: Normal Motor strength normal: LUE, RUE, LLE, RLE Sensory: Normal - Psychological Associated symptoms: Normal affect, Normal mood - Skin Skin Temperature: Warm Skin Moisture: Dry Skin Color: Normal Course - Re-evaluation Re-evalutation: 05/26/19 01:08 Patient had a recurrence of chest pain at 1:08 AM. Repeat EKG and nitro ordered. 05/26/19 01:22 EKG #2: Normal sinus rhythm, normal QRS, normal ST segments. Normal T waves. No significant change from prior. Interpr: Normal EKG. 05/26/19 02:50 Laboratory 05/26/19 05/26/19 05/26/19 00:25 00:25 00:25 WBC 9.2 RBC 3.91 Hgb 11.6 L Hct 34.4 L MCV 88 MCH 29.7 MCHC 33.7 RDW 13.3 Plt Count 296 Seg Neutrophils % 64.5 Lymphocytes % 28.6 Monocytes % 4.1 Eosinophils % 2.1 Basophils % 0.7 Absolute Neutrophils 5.9 Absolute Lymphocytes 2.6 Absolute Monocytes 0.4 Absolute Eosinophils 0.2 Absolute Basophils 0.1 PT 12.8 INR 0.96 APTT 32.7 Sodium 137.3 Potassium 4.7 Chloride 103 Carbon Dioxide 25 Anion Gap 9 BUN 21 H Creatinine 0.63 Est GFR ( Amer) > 60 Est GFR (Non-Af Amer) > 60 Glucose 204 H Calcium 8.9 Total Bilirubin 0.2 Direct Bilirubin 0.2 Neonat Total Bilirubin Not Reportable Neonat Direct Bilirubin Not Reportable Neonat Indirect Bili Not Reportable AST 16 ALT 25 Alkaline Phosphatase 134 H Creatine Kinase 133 CK-MB (CK-2) Troponin I Total Protein 7.3 Albumin 4.1 TSH Free T4 05/26/19 05/26/19 00:25 00:25 WBC RBC Hgb Hct MCV MCH MCHC RDW Plt Count Seg Neutrophils % Lymphocytes % Monocytes % Eosinophils % Basophils % Absolute Neutrophils Absolute Lymphocytes Absolute Monocytes Absolute Eosinophils Absolute Basophils PT INR APTT Sodium Potassium Chloride Carbon Dioxide Anion Gap BUN Creatinine Est GFR ( Amer) Est GFR (Non-Af Amer) Glucose Calcium Total Bilirubin Direct Bilirubin Neonat Total Bilirubin Neonat Direct Bilirubin Neonat Indirect Bili AST ALT Alkaline Phosphatase Creatine Kinase CK-MB (CK-2) 2.98 Troponin I < 0.012 Total Protein Albumin TSH 1.43 Free T4 1.84 Chest X-Ray 05/26/19 00:00 IMPRESSION: No evidence of acute intrathoracic disease. Remote median sternotomy. Patient had recurring angina. Based on her history very concerned that she needs to have intervention. Game Show Host agreed. Patient has been accepted for transfer. Dr. Moya has accepted at [facility]. We will transfer at this time. 05/26/19 02:51 Patient was reevaluated prior to transport at 2:51 AM. Patient remained stable for transport. - Vital Signs Vital signs: Temp Pulse Resp BP Pulse Ox 97.6 F 76 14 111/61 98 05/26/19 00:18 05/26/19 00:18 05/26/19 02:01 05/26/19 02:01 05/26/19 02:01 - Laboratory Result Diagrams: 05/26/19 00:25 05/26/19 00:25 Laboratory results interpreted by me: 05/26/19 05/26/19 00:25 00:25 Hgb 11.6 L Hct 34.4 L BUN 21 H Glucose 204 H Alkaline Phosphatase 134 H - EKG Interpretation by Mi EKG shows normal: Sinus rhythm, [place], Intervals, QRS Complexes, ST-T Waves Discharge - Discharge Clinical Impression: Acute angina Condition: Good Disposition: [facility] Referrals: ZITA NGUYEN MD [EMERITUS] - Follow up as needed
[2019-05-26 00:48] LABS: ABSOLUTE BASOPHILS # (AUTO) 0.1 10^3/uL (0.0-0.2); ABSOLUTE EOSINOPHILS # (AUTO) 0.2 10^3/uL (0.0-0.6); ABSOLUTE LYMPHOCYTES (AUTO) 2.6 10^3/uL (0.5-4.7); ABSOLUTE MONOCYTES (AUTO) 0.4 10^3/uL (0.1-1.4); ABSOLUTE NEUT (AUTO) 5.9 10^3/uL (1.7-8.2); BASOPHILS % (AUTO) 0.7 % (0-2); EOSINOPHILS % (AUTO) 2.1 % (0-6); HEMATOCRIT 34.4 % (36.0-47.0); HEMOGLOBIN 11.6 g/dL (12.0-15.5); INTERNATIONAL RATION (INR) 0.96; LYMPHOCYTES % (AUTO) 28.6 % (13-45); MEAN CORPUSCULAR HEMOGLOBIN 29.7 pg (27.0-33.4); MEAN CORPUSCULAR HGB CONC 33.7 g/dL (32.0-36.0); MEAN CORPUSCULAR VOLUME 88 fl (80-97); MONOCYTES % (AUTO) 4.1 % (3-13); PLATELET COUNT 296 10^3/uL (150-450); PROTHROMBIN TIME 12.8 SEC (11.4-15.4); RED BLOOD COUNT 3.91 10^6/uL (3.72-5.28); RED CELL DISTRIBUTION WIDTH 13.3 % (11.5-14.0); SEGMENTED NEUTROPHILS % (AUTO) 64.5 % (42-78); TOTAL CELLS COUNTED % (AUTO) 100 %; WHITE BLOOD COUNT 9.2 10^3/uL (4.0-10.5)
[2019-05-26 00:49] LABS: PARTIAL THROMBOPLASTIN TIME 32.7 SEC (23.5-35.8)
[2019-05-26] MEDS ORDERED: NITROGLYCERIN 0.4 MG/TAB 25 TAB/BOTTLE SL PRN (01:07)
[2019-05-26 01:09] LABS: ALANINE AMINOTRANSFERASE 25 U/L (9-52); ALBUMIN 4.1 g/dL (3.5-5.0); ALKALINE PHOSPHATASE 134 U/L (38-126); ANION GAP 9 (5-19); ASPARTATE AMINO TRANSFERASE 16 U/L (14-36); BILIRUBIN,DIRECT 0.2 mg/dL (0.0-0.4); BILIRUBIN,TOTAL 0.2 mg/dL (0.2-1.3); BLOOD UREA NITROGEN 21 mg/dL (7-20); CALCIUM 8.9 mg/dL (8.4-10.2); CARBON DIOXIDE 25 mmol/L (22-30); CHLORIDE 103 mmol/L (98-107); CREATINE KINASE 133 U/L (30-135); GLUCOSE 204 mg/dL (75-110); POTASSIUM 4.7 mmol/L (3.6-5.0); SODIUM 137.3 mmol/L (137-145); TOTAL PROTEIN 7.3 g/dL (6.3-8.2)
--- NOTE | 2019-05-26 01:17 | RADIOLOGY REPORT (SQ) ---
EXAM DESCRIPTION: X-ray two view chest. CLINICAL HISTORY: 64 years Female, chest pain COMPARISON: 01/28/2016 TECHNIQUE: PA and Lateral views of the chest performed on 05/26/2019 at 12:59 AM FINDINGS: The lungs are well expanded and are clear. The costophrenic sulci are clear. There is no evidence of a pneumothorax. The cardiac silhouette is normal in size. There are remote postsurgical changes of the mediastinum. The mediastinal contours are normal. No acute osseous abnormalities are identified. There are mild degenerative changes of the spine. No focal soft tissue abnormalities are identified. There are surgical clips in the right upper quadrant. IMPRESSION: No evidence of acute intrathoracic disease. Remote median sternotomy.
[2019-05-26 01:19] LABS: CREATINE KINASE MB 2.98 ng/mL (<4.55)
[2019-05-26 01:22] LABS: TROPONIN I < 0.012 ng/mL
[2019-05-26 02:11] LABS: FREE T4 (FREE THYROXINE) 1.84 ng/dL (0.78-2.19)
[2019-05-26 02:25] LABS: THYROID STIMULATING HORMONE 1.43 uIU/mL (0.47-4.68)
[2019-05-26 02:43] VITALS: BP 111/61
--- NOTE | 2019-05-26 22:41 | EKG REPORT ---
SEVERITY:- OTHERWISE NORMAL ECG - SINUS ARRHYTHMIA, RATE 60-79 : Confirmed by: Bridgett Pink MD 26-May-2019 22:41:00
--- NOTE | 2019-05-26 22:41 | EKG REPORT ---
SEVERITY:- NORMAL ECG - SINUS RHYTHM : Confirmed by: Bridgett Pink MD 26-May-2019 22:40:55
== END 2019-05-26 03:01 | disposition short-term general hospital (02) ==
LOC: ER 00:09
DX: I25.119 Atherosclerotic heart disease of native coronary artery with unspecified angina pectoris (principal); I10 Essential (primary) hypertension; I25.2 Old myocardial infarction; M79.602 Pain in left arm; Z95.5 Presence of coronary angioplasty implant and graft; Z95.1 Presence of aortocoronary bypass graft; R11.0 Nausea; E03.9 Hypothyroidism, unspecified; E11.9 Type 2 diabetes mellitus without complications; Z79.4 Long term (current) use of insulin; Z82.49 Family history of ischemic heart disease and other diseases of the circulatory system
CPT/HCPCS: 36415; 71046; 80053; 82550; 82553; 84439; 84443; 84484; 85025; 85610; 85730; 93005; 93010; 99285

== ENCOUNTER → 2019-06-09 | Outpatient (CLI) | payer OTHER ==
[2019-06-09 08:14] LABS: ABSOLUTE EOSINOPHILS # (AUTO) 0.1 10^3/uL (0.0-0.6); ABSOLUTE LYMPHOCYTES (AUTO) 1.2 10^3/uL (0.5-4.7); ABSOLUTE MONOCYTES (AUTO) 0.3 10^3/uL (0.1-1.4); ABSOLUTE NEUT (AUTO) 4.9 10^3/uL (1.7-8.2); BASOPHILS % (AUTO) 0.6 % (0-2); EOSINOPHILS % (AUTO) 1.7 % (0-6); HEMATOCRIT 33.3 % (36.0-47.0); HEMOGLOBIN 11.3 g/dL (12.0-15.5); LYMPHOCYTES % (AUTO) 18.5 % (13-45); MEAN CORPUSCULAR HEMOGLOBIN 29.8 pg (27.0-33.4); MEAN CORPUSCULAR VOLUME 88 fl (80-97); MONOCYTES % (AUTO) 4.1 % (3-13); PLATELET COUNT 297 10^3/uL (150-450); RED CELL DISTRIBUTION WIDTH 14.2 % (11.5-14.0); SEGMENTED NEUTROPHILS % (AUTO) 75.1 % (42-78); TOTAL CELLS COUNTED % (AUTO) 100 %; WHITE BLOOD COUNT 6.5 10^3/uL (4.0-10.5)
[2019-06-09 08:54] LABS: ALANINE AMINOTRANSFERASE 16 U/L (9-52); ALBUMIN 4.3 g/dL (3.5-5.0); ALKALINE PHOSPHATASE 94 U/L (38-126); ANION GAP 9 (5-19); ASPARTATE AMINO TRANSFERASE 20 U/L (14-36); BILIRUBIN,DIRECT 0.3 mg/dL (0.0-0.4); BILIRUBIN,TOTAL 0.4 mg/dL (0.2-1.3); BLOOD UREA NITROGEN 14 mg/dL (7-20); CALCIUM 9.4 mg/dL (8.4-10.2); CARBON DIOXIDE 29 mmol/L (22-30); CHLORIDE 101 mmol/L (98-107); CHOLESTEROL 124.02 mg/dL (0-200); GLUCOSE 193 mg/dL (75-110); POTASSIUM 5.5 mmol/L (3.6-5.0); TOTAL PROTEIN 7.4 g/dL (6.3-8.2); TRIGLYCERIDES 97 mg/dL (<150)
[2019-06-09 09:03] LABS: FREE T4 (FREE THYROXINE) 1.62 ng/dL (0.78-2.19)
[2019-06-09 09:04] LABS: DIRECT LDL 74 mg/dL (<100)
[2019-06-09 09:17] LABS: THYROID STIMULATING HORMONE 0.99 uIU/mL (0.47-4.68)
== END ==
LOC: OD 07:04
PROVIDERS: ATTEND Family Medicine
DX: I10 Essential (primary) hypertension (principal); E03.9 Hypothyroidism, unspecified; E11.9 Type 2 diabetes mellitus without complications; I25.10 Atherosclerotic heart disease of native coronary artery without angina pectoris; E78.2 Mixed hyperlipidemia
CPT/HCPCS: 36415; 80053; 80061; 83036; 83735; 84439; 84443; 85025

== ENCOUNTER → 2020-04-12 | Outpatient (CLI) | payer MEDICARE, OTHER ==
[2020-04-12 08:30] LABS: ABSOLUTE EOSINOPHILS # (AUTO) 0.1 10^3/uL (0.0-0.6); ABSOLUTE LYMPHOCYTES (AUTO) 2.4 10^3/uL (0.5-4.7); ABSOLUTE MONOCYTES (AUTO) 0.3 10^3/uL (0.1-1.4); BASOPHILS % (AUTO) 0.6 % (0-2); EOSINOPHILS % (AUTO) 2.1 % (0-6); HEMATOCRIT 31.8 % (36.0-47.0); HEMOGLOBIN 10.9 g/dL (12.0-15.5); LYMPHOCYTES % (AUTO) 34.8 % (13-45); MEAN CORPUSCULAR HEMOGLOBIN 30.2 pg (27.0-33.4); MEAN CORPUSCULAR HGB CONC 34.2 g/dL (32.0-36.0); MEAN CORPUSCULAR VOLUME 88 fl (80-97); MONOCYTES % (AUTO) 4.1 % (3-13); PLATELET COUNT 270 10^3/uL (150-450); RED CELL DISTRIBUTION WIDTH 13.5 % (11.5-14.0); SEGMENTED NEUTROPHILS % (AUTO) 58.4 % (42-78); TOTAL CELLS COUNTED % (AUTO) 100 %; WHITE BLOOD COUNT 6.8 10^3/uL (4.0-10.5)
--- NOTE | 2020-04-12 08:35 | RADIOLOGY REPORT (SQ) ---
EXAM DESCRIPTION: CHEST PA/LATERAL IMAGES COMPLETED DATE/TIME: 04/12/2020 8:01 am REASON FOR STUDY: CHEST PAIN, UNSPECIFIED COMPARISON: PA and lateral views of the chest from 05/26/2019. EXAM PARAMETERS: NUMBER OF VIEWS: Two views. TECHNIQUE: PA and lateral views of the chest were obtained. RADIATION DOSE: NA. LIMITATIONS: None. FINDINGS: LUNGS AND PLEURA: No consolidation, pleural effusion or pneumothorax. MEDIASTINUM AND HILAR STRUCTURES: No mediastinal or hilar contour abnormality. HEART AND VASCULAR STRUCTURES: The cardiac silhouette and pulmonary vasculature are within normal [place] its. BONES: No acute findings. HARDWARE: Status post CABG and cholecystectomy. OTHER: No other finding. IMPRESSION: No acute cardiopulmonary process. TECHNICAL DOCUMENTATION: JOB ID: [id number] 2010 [employer]- All Rights Reserved Reading location - IP/workstation name: [email or web address]
[2020-04-12 08:53] LABS: ALKALINE PHOSPHATASE 90 U/L (38-126); ANION GAP 10 (5-19); ASPARTATE AMINO TRANSFERASE 17 U/L (14-36); BILIRUBIN,TOTAL 0.5 mg/dL (0.2-1.3); BLOOD UREA NITROGEN 16 mg/dL (7-20); CALCIUM 8.7 mg/dL (8.4-10.2); CARBON DIOXIDE 23 mmol/L (22-30); CHLORIDE 102 mmol/L (98-107); CHOLESTEROL 116.29 mg/dL (0-200); GLUCOSE 239 mg/dL (75-110); POTASSIUM 5.2 mmol/L (3.6-5.0); TOTAL PROTEIN 7.3 g/dL (6.3-8.2); TRIGLYCERIDES 99 mg/dL (<150)
[2020-04-12 09:11] LABS: DIRECT LDL 74 mg/dL (<100)
[2020-04-12 09:19] LABS: FREE T4 (FREE THYROXINE) 1.44 ng/dL (0.78-2.19)
[2020-04-12 09:33] LABS: THYROID STIMULATING HORMONE 4.13 uIU/mL (0.47-4.68)
[2020-04-12 17:46] LABS: ABSOLUTE RETICS # 0.036 10^6/uL (0.028-0.122)
[2020-04-12 17:47] LABS: IRON(TIBC) 54.2 ug/dL (37-170)
== END ==
LOC: OD 07:33
PROVIDERS: ATTEND Family Medicine
DX: R07.9 Chest pain, unspecified (principal); I10 Essential (primary) hypertension; E03.9 Hypothyroidism, unspecified; E11.9 Type 2 diabetes mellitus without complications; E78.2 Mixed hyperlipidemia
CPT/HCPCS: 36415; 71046; 80053; 80061; 82607; 82728; 82746; 83036; 83540; 83550; 84439; 84443; 84466; 85025; 85045

== ENCOUNTER → 2020-05-10 | Outpatient (CLI) | payer MEDICARE, OTHER ==
--- NOTE | 2020-05-10 15:18 | WOMENS IMAGING REPORT ---
EXAM DESCRIPTION: 3D SCREENING MAMMO BILAT IMAGES COMPLETED DATE/TIME: 05/10/2020 2:03 pm REASON FOR STUDY: Z12.31 ENCOUNTER FOR SCREENING MAMMOGRAM FOR MALIGNANT NEOPLASM OF BREAST Z12.31 ENCNTR SCREEN MAMMOGRAM FOR MALIGNANT NEOPLASM OF JENNIFER COMPARISON: 2010 EXAM PARAMETERS: Views: Standard craniocaudal and mediolateral oblique views of each breast recorded using digital acquisition and breast tomosynthesis. Read with the assistance of CAD. .[facility] - [employer] Agent Version 9.2 LIMITATIONS: None. FINDINGS: No suspicious masses, suspicious calcifications or architectural distortion. No areas of c oncern. IMPRESSION: NEGATIVE MAMMOGRAM. BIRADS 1. BREAST DENSITY: c. The breasts are heterogeneously dense, which may obscure small masses. BIRAD: ASSESSMENT: 1 NEGATIVE RECOMMENDATION: ROUTINE SCREENING COMMENT: The patient has been notified of the results by letter per MQSA requirements. Additional no tification policies are in place for contacting patient with suspicious or incomplete findings. Quality ID #[id number]: The [employer] recommends an annual screening mammogram for women aged 40 years or over. This facility utilizes a reminder system to ensure that all patients receive reminder letters, and/or direct phone calls for appointments. This includes reminders for routine scr eening mammograms, diagnostic mammograms, or other Breast Imaging Interventions when appropriate. Th is patient will be placed in the appropriate reminder system. TECHNICAL DOCUMENTATION: FINDING NUMBER: (1) ASSESSMENT: (1) JOB ID: [id number] 2010 [employer]- All Rights Reserved Reading location - IP/workstation name: [email or web address]
== END ==
LOC: WI 13:27
PROVIDERS: ATTEND Family Medicine
DX: Z12.31 Encounter for screening mammogram for malignant neoplasm of breast (principal)
CPT/HCPCS: 77063; 77067

== ENCOUNTER → 2020-06-25 | Outpatient (CLI) | payer MEDICARE, OTHER ==
--- NOTE | 2020-06-25 13:29 | WOMENS IMAGING REPORT ---
EXAM DESCRIPTION: BONE DENSITY HIP/SPINE IMAGES COMPLETED DATE/TIME: 06/25/2020 1:07 pm REASON FOR STUDY: Z78.0 Z78.0 ASYMPTOMATIC MENOPAUSAL STATE COMPARISON: None. TECHNIQUE: Dual-Energy X-ray Absorptiometry (DEXA) of the AP Spine and Hip. LIMITATIONS: None. FINDINGS: LUMBAR SPINE: The bone mineral density (BMD) measured from L1-L4 in the AP projection correlates with a T-score of 0.5, which is normal as defined by the World Health Organization. BMD Change vs Baseline: N/A HIP: The bone mineral density (BMD) measured in the left hip correlates with a T-score of 0.5 in the femor al neck, which is normal as defined by the World Health Organization. BMD Change vs Baseline: N/A 10 year Fracture Risk Assessment: Major Osteoporotic Fracture: Not available. Hip Fracture: Not available. IMPRESSION: 1. LUMBAR SPINE WHO CLASSIFICATION: NORMAL. 2. HIP WHO CLASSIFICATION: NORMAL. OVERALL ASSESSMENT: WHO CLASSIFICATION: NORMAL. COMMENT: The World Health Organization defines low BMD as follows: T-score: Normal: At or above -1.0 Osteopenia: Between -1.0 and -2.5 Osteoporosis: At or below -2.5 without fractures Established osteoporosis: At or below -2.5 with fractures In general, you may wish to consider: Diagnosis Treatment Follow-up DEXA Normal BMD Prevention 2-3 years Osteopenia Prevention/Therapy 1-2 years Osteoporosis Therapy Yearly TECHNICAL DOCUMENTATION: JOB ID: [id number] 2010 [employer]- All Rights Reserved Reading location - IP/workstation name: [email or web address]
== END ==
LOC: WI 12:45
PROVIDERS: ATTEND Physician Assistant
DX: Z78.0 Asymptomatic menopausal state (principal)
CPT/HCPCS: 77080

== ENCOUNTER → 2020-07-31 | Outpatient (CLI) | payer MEDICARE, OTHER ==
[2020-07-31 07:52] LABS: ABSOLUTE BASOPHILS # (AUTO) 0.1 10^3/uL (0.0-0.2); ABSOLUTE EOSINOPHILS # (AUTO) 0.1 10^3/uL (0.0-0.6); ABSOLUTE LYMPHOCYTES (AUTO) 1.7 10^3/uL (0.5-4.7); ABSOLUTE MONOCYTES (AUTO) 0.3 10^3/uL (0.1-1.4); ABSOLUTE NEUT (AUTO) 4.6 10^3/uL (1.7-8.2); BASOPHILS % (AUTO) 0.8 % (0-2); EOSINOPHILS % (AUTO) 1.7 % (0-6); HEMATOCRIT 35.5 % (36.0-47.0); HEMOGLOBIN 12.3 g/dL (12.0-15.5); LYMPHOCYTES % (AUTO) 25.2 % (13-45); MEAN CORPUSCULAR HEMOGLOBIN 30.9 pg (27.0-33.4); MEAN CORPUSCULAR HGB CONC 34.7 g/dL (32.0-36.0); MEAN CORPUSCULAR VOLUME 89 fl (80-97); MONOCYTES % (AUTO) 4.1 % (3-13); PLATELET COUNT 244 10^3/uL (150-450); RED BLOOD COUNT 3.99 10^6/uL (3.72-5.28); RED CELL DISTRIBUTION WIDTH 13.5 % (11.5-14.0); SEGMENTED NEUTROPHILS % (AUTO) 68.2 % (42-78); TOTAL CELLS COUNTED % (AUTO) 100 %; WHITE BLOOD COUNT 6.8 10^3/uL (4.0-10.5)
[2020-07-31 08:08] LABS: ALBUMIN 4.6 g/dL (3.5-5.0); ALKALINE PHOSPHATASE 133 U/L (38-126); ANION GAP 11 (5-19); ASPARTATE AMINO TRANSFERASE 19 U/L (14-36); BILIRUBIN,DIRECT 0.3 mg/dL (0.0-0.4); BILIRUBIN,TOTAL 0.5 mg/dL (0.2-1.3); BLOOD UREA NITROGEN 18 mg/dL (7-20); CALCIUM 9.2 mg/dL (8.4-10.2); CARBON DIOXIDE 23 mmol/L (22-30); CHLORIDE 104 mmol/L (98-107); CHOLESTEROL 140.51 mg/dL (0-200); GLUCOSE 257 mg/dL (75-110); POTASSIUM 5.2 mmol/L (3.6-5.0); TOTAL PROTEIN 7.6 g/dL (6.3-8.2); TRIGLYCERIDES 195 mg/dL (<150)
[2020-07-31 08:19] LABS: DIRECT LDL 78 mg/dL (<100)
== END ==
LOC: OD 07:08
PROVIDERS: ATTEND Family Medicine
DX: E53.8 Deficiency of other specified B group vitamins (principal); D50.9 Iron deficiency anemia, unspecified; E11.65 Type 2 diabetes mellitus with hyperglycemia; E11.22 Type 2 diabetes mellitus with diabetic chronic kidney disease; N18.1 Chronic kidney disease, stage 1; E78.2 Mixed hyperlipidemia
CPT/HCPCS: 36415; 80053; 80061; 82607; 83036; 83735; 85025